=== PATIENT | female | born 1995 | race Caucasian/White ===

== ENCOUNTER 2021-07-23 11:36 | Outpatient (REF) | payer OTHER, SELFPAY ==
[2021-07-23 12:30] LABS: Influenza A PCR NEGATIVE (Negative); Influenza B PCR NEGATIVE (Negative); Resp Syncy Virus RNA Qual PCR NEGATIVE (Negative); SARS COV2 PCR INHOUSE POSITIVE (Negative)
== END 2021-07-23 11:37 | disposition home or self-care (01) ==
LOC: HO.LNP 11:36
PROVIDERS: Visit Provider Physician Assistant Medical
DX: Z20.822 Contact with and (suspected) exposure to COVID-19 (principal); J06.9 Acute upper respiratory infection, unspecified
CPT/HCPCS: 0241U

== ENCOUNTER 2021-12-08 09:06 | Outpatient (REF) | payer OTHER, SELFPAY ==
[2021-12-08 09:51] LABS: Hematocrit 41.8 % (37.0-47.0); Hemoglobin 12.6 g/dl (12.0-16.0); Mean Corpuscular HGB Conc 30.1 g/dl (31.0-35.0); Mean Corpuscular Hemoglobin 25.5 pg (27.0-33.0); Mean Corpuscular Volume 84.4 fL (80.0-98.0); Mean Platelet Volume 10.2 fL (9.4-12.3); Platelet Count 370 X10*3/uL (160-400); Red Blood Count 4.95 X10*6/uL (4.20-5.50); Red Cell Distribution Width 13.3 % (11.0-16.0); White Blood Count 8.1 X10*3/uL (4.8-10.8)
[2021-12-08 10:23] LABS: Alanine Aminotransferase 46 U/L (0-31); Alkaline Phosphatase 56 U/L (39-117); Anion Gap 12 (12-20); Aspartate Amino Transferase 40 U/L (5-31); Bilirubin Total 0.4 mg/dL (0.0-1.0); Blood Urea Nitrogen 10 mg/dL (9-16); Calcium 9.2 mg/dL (8.4-10.2); Carbon Dioxide 22 mmol/L (22-29); Chloride 111 mmol/L (96-108); Estimated Glomerular Filt Rate > 60; Glucose Fasting 93 mg/dL (60-99); Potassium 4.5 mmol/L (3.3-5.1); Sodium 140 mmol/L (135-145); Total Protein 7.1 g/dL (6.5-8.0)
[2021-12-08 10:27] LABS: Estimated Average Glucose 103 mg/dL; Hemoglobin A1c % 5.2 %
[2021-12-08 10:45] LABS: TSH reflex Free T4 4.54 uIU/mL (0.32-4.0)
[2021-12-08 11:19] LABS: Free T4 (Free Thyroxine) 0.91 ng/dL (0.71-1.85)
== END 2021-12-08 09:07 | disposition home or self-care (01) ==
LOC: HO.LAB 09:06
PROVIDERS: PCP Physician Assistant; Visit Provider Physician Assistant
DX: I10 Essential (primary) hypertension (principal); Z13.1 Encounter for screening for diabetes mellitus; Z13.29 Encounter for screening for other suspected endocrine disorder
CPT/HCPCS: 36415; 80053; 83036; 84439; 84443; 85027

== ENCOUNTER 2022-12-14 11:57 | Outpatient (REF) | payer OTHER, SELFPAY ==
[2022-12-14 15:12] LABS: Influenza A PCR NEGATIVE (Negative); Influenza B PCR NEGATIVE (Negative); Resp Syncy Virus RNA Qual PCR NEGATIVE (Negative); SARS COV2 PCR INHOUSE NEGATIVE (Negative)
== END 2022-12-14 11:58 | disposition home or self-care (01) ==
LOC: HO.LAB 11:57
PROVIDERS: Visit Provider Physician Assistant
DX: Z20.822 Contact with and (suspected) exposure to COVID-19 (principal); B34.9 Viral infection, unspecified
CPT/HCPCS: 0241U

== ENCOUNTER 2022-12-24 08:02 | Outpatient (REF) | payer OTHER, SELFPAY ==
[2022-12-24 09:08] LABS: Alanine Aminotransferase 10 U/L (0-31); Albumin Level 3.7 g/dL (3.5-5.0); Alkaline Phosphatase 40 U/L (39-117); Anion Gap 9 (12-20); Aspartate Amino Transferase 10 U/L (5-31); Bilirubin Total 0.5 mg/dL (0.0-1.0); Blood Urea Nitrogen 9 mg/dL (9-16); Calcium 8.9 mg/dL (8.4-10.2); Carbon Dioxide 24 mmol/L (22-29); Chloride 111 mmol/L (96-108); Estimated Glomerular Filt Rate > 60; Glucose Fasting 91 mg/dL (60-99); Potassium 4.4 mmol/L (3.3-5.1); Sodium 140 mmol/L (135-145); Total Protein 6.5 g/dL (6.5-8.0)
[2022-12-24 09:24] LABS: TSH reflex Free T4 2.88 uIU/mL (0.32-4.0)
== END 2022-12-24 08:03 | disposition home or self-care (01) ==
LOC: HO.LAB 08:02
PROVIDERS: PCP Physician Assistant; Visit Provider Physician Assistant
DX: R79.89 Other specified abnormal findings of blood chemistry (principal); Z13.1 Encounter for screening for diabetes mellitus
CPT/HCPCS: 36415; 80053; 84443

== ENCOUNTER 2023-08-23 08:38 | Outpatient (AMB) | payer OTHER, SELFPAY ==
[2023-08-23 10:01] VITALS: BP 100/62; PULSE 66; TEMP 36.3; O2SAT 97; BMI 31.9
--- NOTE | 2023-08-23 10:01 | AM.OFFWIN_ITS ---
Intake Vital Signs 08/23/23 10:01 Height 5 ft 4 in Weight 186 lb BMI 31.9 BP 100/62 Blood Pressure Location Rt brachial Position Sitting Pulse 66 Pulse Source Pulse Oximeter Temp 97.4 F Temp Source Temporal Artery Scan Pulse Oximetry (%) 97 Oxygen Delivery Method Room Air Intake Visit Reasons: EP body aches phlem cough ed [phone] Intake Note: pt is here for c/o body aches, cough, congestion Patient Tobacco Use Status: Never used Tobacco Allergies No Known Allergies [No Known Allergies*] Allergy (Verified 08/23/23 10:02) Do you need a note to return to daycare/school/sports/work: Yes HPI EP body aches phlem cough ed [phone] HPI Details Patient presents to walk-in clinic today for complaints of cough and fatigue for last 5 days. She had sore throat approximately 5 days ago but that has since resolved. Does report minimally productive cough of clear white sputum, otherwise reports persistent dry cough. Denies fevers, chest pain, vomiting, diarrhea. Known sick contact that tested positive for covid last week. She is requesting work note, she called out sick at the end of last week and again today. [facility] Medical History Tourettes disorder Family History Mother Hypothyroid (Updated 12/16/22 @ 13:38 by Case Michel PA-C) Housing: Apartment Alcohol intake: current Alcohol intake frequency: holidays/special occasions only Patient Tobacco Use Status: Never used Tobacco e-Cigarette/Vaping Use: Never Used service: No Current occupational status: employed Current occupation: [employer] Review of Systems Const All systems reviewed & are unremarkable except as noted in HPI and below Physical Exam Vital Signs: Last Vital Signs Temp 97.4 F 08/23/23 10:01 Pulse 66 08/23/23 10:01 BP 100/62 08/23/23 10:01 Pulse Ox 97 08/23/23 10:01 Oxygen Delivery Method Room Air 08/23/23 10:01 BMI result Body Mass Index 31.9 General: awake, alert, oriented. Answers questions appropriately. Fully engaged in examination. Skin: warm, dry, intact Neurological: Oriented to person, place, time and situation. Thought process intact. Psychiatric: Appropriate mood and affect. Good judgment and insight. HEENT Head: Yes normal to inspection Ears: hearing grossly normal bilaterally and TM's normal bilaterally Mouth: Normal oral and palatal mucosa present Throat: Yes posterior oropharynx normal and Yes uvula midline Resp Effort & Inspection: normal respiratory effort and Actively coughing Quality: dry Auscultation: clear to auscultation bilaterally Results Reviewed Results Reviewed: ENTERED: 08/23/[address]: PhysicianPerry Nicholas PA-C ORDERED: Binax Cov-19 Ag Test Result Flag Reference Site Binax Now Cov19 Negative Negative Assessment & Plan Assessment & Plan (1) Exposure to communicable disease: Code(s): Z20.9 - Contact with and (suspected) exposure to unspecified communicable disease (2) Upper respiratory tract infection: Code(s): J06.9 - Acute upper respiratory infection, unspecified Plan Rapid Covid test negative. Drink plenty of fluids, get plenty of rest, Tylenol/Motrin as needed Benzonatate 100mg po BID as needed for cough. No antibiotics warranted at this time. Work note provided per patient request. Follow up with pcp or return to clinic for any new or worsening symptoms. Orders: Orders BinaxNOW Covid-19 Ag Today Z20.9 - Contact with and (suspected) exposure to unspecified communicable disease Medications: New benzonatate 100 mg PO BID PRN 14 caps 0RF cough Coding Level of Care Code Est Pt Level 4 (21154) Diagnoses Exposure to communicable disease Z20.9 Upper respiratory tract infection J06.9
== END 2023-08-23 10:50 | disposition home or self-care (01) ==
PROVIDERS: PCP Physician Assistant; Visit Provider Registered Nurse Emergency
DX: J06.9 Acute upper respiratory infection, unspecified (principal); Z20.828 Contact with and (suspected) exposure to other viral communicable diseases
CPT/HCPCS: 99213

== ENCOUNTER 2023-08-23 10:51 | Outpatient (REF) | payer OTHER, SELFPAY ==
[2023-08-23 11:20] LABS: Binax Internal Control QC Valid; Binax Now Covid-19 Ag Negative (Negative); Binax Performed by: PAULP
== END 2023-08-23 10:52 | disposition home or self-care (01) ==
LOC: HO.HMGCLDS 10:51
PROVIDERS: PCP Physician Assistant; Visit Provider Registered Nurse Emergency
DX: Z11.52 Encounter for screening for COVID-19 (principal); Z20.9 Contact with and (suspected) exposure to unspecified communicable disease
CPT/HCPCS: 87811; C9803

== ENCOUNTER 2024-01-06 13:58 | Outpatient (AMB) | payer OTHER, SELFPAY ==
[2024-01-06 14:05] VITALS: BP 90/68; PULSE 80; O2SAT 99; BMI 33.7
--- NOTE | 2024-01-06 14:05 | MHC.PC.OV ---
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 ? PAtient pmhx of Asthma. enviromental allergies , tourettes, Obesity Concern--> reports she has been experiencing signs and symptoms more depression and anxiety. Has been writing poetry that seems dark in nature. She reports her family has noticed and advised her to seek counseling. She has not interested in mental health medication though would be interested in cognitive behavioral therapy. ? .. ? Touuretes (motor Tic disorder): Is seeing Dr. Jimenez/ Neuro, at this point she is managing her Tourettes without medications.. ? .. ? Asthma: SHe reports her asthma is well controlled only using her asthma inhaler on a p.r.n. basis., hasn't had any Asthma attacks. .. Obesity: Patient's BMI today 33.7. Has gained 10 lb since last office visit. Unclear if this is due to her thyroid. Has had history of elevated TSH.. ? .. ? Vaccine: Declines Flu, UTD with Tdap, Declines COVID vaccine, Need PCV ( considering) ? 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 ( [place]) Gets PAP theres- she would like to be evaluated for permanent sterilization and would need a referral to OBGYN [facility] Medical History Tourettes disorder Family History Mother Hypothyroid Social History (Updated 01/06/24 @ 14:19 by Case Michel PA-C) Housing: Apartment Alcohol intake: current Alcohol intake frequency: holidays/special occasions only Patient Tobacco Use Status: Never used Tobacco e-Cigarette/Vaping Use: Never Used service: No Current occupational status: unemployed Cognitive needs: No Hearing needs: No Vision needs: No Questionnaire PHQ-9 Over the last 2 weeks, how often have you been bothered by any of the following problems? 1. Little interest or pleasure in doing things: more than half the days 2. Feeling down, depressed, or hopeless: several days 3. Trouble falling or staying asleep, or sleeping too much: more than half the days 4. Feeling tired or having little energy: more than half the days 5. Poor appetite or overeating: more than half the days 6. Feeling bad about yourself - or that you are a failure or have let yourself or your family down: more than half the days 7. Trouble concentrating on things, such as reading the newspaper or watching television: several days 8. Moving or speaking so slowly that other people could have noticed. Or the opposite - being so fidgety or restless that you have been moving around a lot more than usual: not at all 9. Thoughts that you would be better off or of hurting yourself in some way: not at all Total score: 12 Depression Screening Interpretation: Positive Depression Screening Follow-up: Existing condition and Community Mental Health Worker F/U Depression Screening Done: Yes 08609 - PHQ-9 Billing: Yes Source: Developed by Drs. Sunil Bobby, Alba Mcclure, Oli Lassiter and colleagues, with an educational tiffany from [employer]. Thrive Questionnaire Date Thrive assessed: 01/06/24 I am a: Patient What is your living situation today?: I have a place to live, but I am worried about losing it in the future Within the past 12 months, did the food you bought not last and you didn't have the money to get more?: Never true Within the past 12 months, did you worry whether your food would run out before you got money to buy more?: Never true Do you have trouble paying for medicines?: No Do you have trouble getting transportation to medical appointments?: No Do you have trouble paying your heating and electricity bill?: Yes Do you have trouble taking care of your child, family member or friend?: No Do you have trouble with day-to-day activities such as bathing, preparing meals, shopping, managing finances, etc.?: No Are you currently unemployed and looking for a job?: Yes Are you interested in more education?: No Please select the resources that you would like help with: Housing/Detention, Utilities and Job search/training Currently or been in a relationship where the following occur: no concerns reported THRIVE Score: 2 AUDIT C Alcohol Use Questionnaire (AUDIT-C) 1. How often do you have a drink containing alcohol?: Never 3. How often do you have six or more drinks on one occasion?: Never Total Score: 0 VERO-7 AMB Questionnaire VERO-7 Date VERO - 7 assessed: 01/06/24 Feeling nervous, anxious, or on edge: 2 = More than half the days Not being able to stop or control worryin = More than half the days Worrying too much about different things: 2 = More than half the days Trouble relaxin = More than half the days Being so restless that it is hard to sit still: 0 = Not at all Becoming easily annoyed or irritable: 2 = More than half the days Feeling afraid as if something awful might happen: 2 = More than half the days Total VERO-7 score (0-4 normal; 5-9 mild; 10-14 moderate; 15-21 severe): 12 Source: Developed by Drs. Sunil Bobby, Alba Mcclure, Oli Lassiter and colleagues, with an educational tiffany from [employer]. VERO-7 Assessment Billing VERO-7 Assessment Tool: VERO-7 Assessment 47274 Review of Systems Const Denies body aches, Denies chills, Denies excessive sweating, Denies fatigue, Denies fever(s) and Denies headache(s) Eyes Denies blurry vision ENT Denies dysphagia, Denies vertigo, Denies dizziness, Denies headache(s), Denies hearing loss and Denies tinnitus Card Denies chest pain, Denies chest pain with activity, Denies syncope, Denies irregular heart rhythm and Denies dyspnea Resp Denies chest congestion, Denies cough, Denies hemoptysis, Denies dyspnea and Denies wheezing GI Denies abdominal pain, Denies melena, Denies hematochezia, Denies coffee ground emesis, Denies dysphagia, Denies diarrhea, Denies nausea and Denies vomiting Denies urinary frequency, Denies dysuria, Denies urinary hesitancy and Denies urinary urgency Musc Denies arthralgias, Denies limited range of motion, Denies muscle cramps and Denies muscle weakness Skin/Breast Denies rash and Denies skin ulcer Neuro Denies Abnormal speech present, Denies confusion, Denies vertigo, Denies dizziness, Denies syncope, Denies headache(s), Denies memory loss and Denies seizure-like activity Psych Denies anxiety, Denies confusion, Denies depression, Denies memory loss, Denies panic attacks and Denies paranoia Endo Denies excessive sweating, Denies fatigue, Denies flushing, Denies polydipsia and Denies polyuria Aller/Immun Denies wheezing Physical exam (Primary Care) Vital Signs: Last Vital Signs Pulse 80 01/06/24 14:05 BP 90/68 01/06/24 14:05 Pulse Ox 99 01/06/24 14:05 Oxygen Delivery Method Room Air 01/06/24 14:05 BMI result Body Mass Index 33.7 BMI Assessment/Plan discussion: High BMI High, discussed plan: lifestyle, weight reduction, dietary and physical activity Tobacco/Smoking Status: Tobacco use Status Tobacco use date assessed 01/06/24 01/06/24 14:14 Patient Tobacco Use Status Never used Tobacco 01/06/24 14:05 e-Cigarette/Vaping Use Never Used 01/06/24 14:05 PHQ-9: PHQ-9 Score PHQ-9: Total score 12 01/06/24 14:14 Depression Screening Interpretation: Positive Depression Screening Follow-up: Existing condition and Community Mental Health Worker F/U Thrive Assessment: Date of Thrive Assessment Date Thrive assessed 01/06/24 01/06/24 14:14 Currently or been in a relationship where the following occur: no concerns reported Const Other: Obese General: cooperative, comfortable, no acute distress, alert and awake; No confusion Orientation/consciousness: oriented to person, oriented to place, patient oriented x3 and No confusion HENMT Head: Yes normocephalic Ears: external ears normal and TM's normal bilaterally Face and sinus: No sinus tenderness Mouth: Normal oral and palatal mucosa present and tongue normal Teeth and gingiva: dentition normal and gingiva normal Throat: Yes posterior oropharynx normal, Yes tonsils normal and Yes uvula midline Eyes Conjunctivae: conjunctivae normal Sclerae: sclerae normal Pupils: Equal, round and reactive pupils present EOM: EOMs intact bilaterally Direct Ophthalmoscopy: No no photophobia Neck Neck: Yes no lymphadenopathy, No tender and Yes no JVD Thyroid: Thyroid normal Carotids: no bruits Chest Chest palpation & inspection: no tenderness Resp Effort & Inspection: normal respiratory effort, no audible wheezes, not labored and no stridor Auscultation: no crackles, no rales, no rhonchi and no wheezes Cardio Jugular venous distension: no JVD Rate: regular rate, not bradycardic and not tachycardic Rhythm: regular rhythm Bruits: no carotid bruits Peripheral pulses: Peripheral pulses 2+ throughout GI Inspection: Yes normal to inspection, No abdominal wall ecchymosis and No visible herniation Palpation (GI): Soft to palpation, nontender, no guarding, not rigid and No hepatosplenomegaly present Auscultation: normoactive bowel sounds General: Yes no CVA tenderness Back/Spine/Pelvis Back: no CVA tenderness and No back tenderness Cervical Spine: cervical ROM normal Thoracic/Lumbar Spine: thoracic and lumbar spine normal to inspection, straight leg raise negative bilaterally, No thoraco-lumbar ROM limited and No lumbar spinal tenderness Skin Lesions: no lesions Rashes: no rashes Wounds: no wounds Neuro General: oriented to person, oriented to place, patient oriented x3, CN's II-XI intact bilaterally and No confusion Cranial nerves: Yes Equal, round and reactive pupils present and Yes Normal accommodation reflex present Cognition (Neuro): normal cognition Speech: No Abnormal speech present Gait exam (Neuro): Normal gait present Motor exam (neuro): 5/5 motor strength present throughout Extrem Right upper extremity: full ROM; no cyanosis Left upper extremity: full ROM; no cyanosis Right lower extremity: no edema Left lower extremity: no edema Psych Appearance: grossly normal Mental Status: mental status grossly normal Affect: normal affect Attitude: cooperative Thought process: Normal thought process present Assessment and Plan Assessment & Plan (1) Annual physical exam: Code(s): Z00.00 - Encounter for general adult medical examination without abnormal findings (2) Elevated TSH: Code(s): R79.89 - Other specified abnormal findings of blood chemistry Plan: Has a history of elevated TSH. Has gained 10 lb since last office visit. Will recheck TSH and if elevated will consider starting low-dose levothyroxine. Of note patient does have somewhat of a hard time swallowing pills. 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 She is interested now in starting cognitive behavioral therapy. She has not interested in mental health medication at this time. (6) VERO (generalized anxiety disorder): Code(s): F41.1 - Generalized anxiety disorder Plan: Patient's VERO-7 score positive for anxiety which has been existing condition. Again interested in cognitive behavioral therapy. Orders: Orders TSH reflex Free T4 Today R79.89 - Other specified abnormal findings of blood chemistry Complete Blood Count no Diff Today J45.20 - Mild intermittent asthma, uncomplicated Comprehensive Dalton. Panel Fast Today Z13.1 - Encounter for screening for diabetes mellitus Referrals [facility] F[facility]DER [facility] Referral Z30.8 - Encounter for other contraceptive management Counseling Referral F33.1 - Major depressive disorder, recurrent, moderate Coding Level of Care Code Est Pt Prev Care 18-39y(95057) Diagnoses Annual physical exam Z00.00 Elevated TSH R79.89 Screening for diabetes mellitus (DM) Z13.1 Encounter for tubal ligation counseling Z30.8 MDD (major depressive disorder), recurrent episode, moderate F33.1 VERO (generalized anxiety disorder) F41.1 Additional Codes VERO-7 Assessment Billing - VERO-7 Assessment Tool: VERO-7 Assessment 23745 ([id number])
== END 2024-01-06 14:30 | disposition home or self-care (01) ==
PROVIDERS: PCP Physician Assistant; Visit Provider Physician Assistant
DX: Z00.00 Encounter for general adult medical examination without abnormal findings (principal); R94.6 Abnormal results of thyroid function studies; F33.1 Major depressive disorder, recurrent, moderate; J45.909 Unspecified asthma, uncomplicated; F41.1 Generalized anxiety disorder
CPT/HCPCS: 99395

== ENCOUNTER 2024-02-07 09:45 | Outpatient (REF) | payer OTHER, SELFPAY ==
[2024-02-07 10:28] LABS: Hematocrit 42.4 % (37.0-47.0); Hemoglobin 13.2 g/dl (12.0-16.0); Mean Corpuscular HGB Conc 31.1 g/dl (31.0-35.0); Mean Corpuscular Hemoglobin 25.2 pg (27.0-33.0); Mean Corpuscular Volume 81.1 fL (80.0-98.0); Mean Platelet Volume 10.1 fL (9.4-12.3); Platelet Count 394 X10*3/uL (160-400); Red Blood Count 5.23 X10*6/uL (4.20-5.50); White Blood Count 9.1 X10*3/uL (4.8-10.8)
[2024-02-07 11:03] LABS: Alanine Aminotransferase 29 U/L (0-31); Albumin Level 4.4 g/dL (3.5-5.0); Alkaline Phosphatase 63 U/L (39-117); Anion Gap 14 (12-20); Aspartate Amino Transferase 23 U/L (5-31); Bilirubin Total 0.7 mg/dL (0.0-1.0); Blood Urea Nitrogen 10 mg/dL (9-16); Calcium 10.1 mg/dL (8.4-10.2); Carbon Dioxide 25 mmol/L (22-29); Chloride 106 mmol/L (96-108); Estimated Glomerular Filt Rate > 60; Glucose Fasting 90 mg/dL (60-99); Potassium 4.1 mmol/L (3.3-5.1); Sodium 141 mmol/L (135-145); Total Protein 7.9 g/dL (6.5-8.0)
[2024-02-07 11:22] LABS: TSH reflex Free T4 2.42 uIU/mL (0.32-4.0)
== END 2024-02-07 09:46 | disposition home or self-care (01) ==
LOC: HO.LAB 09:45
PROVIDERS: PCP Physician Assistant; Visit Provider Physician Assistant
DX: R79.89 Other specified abnormal findings of blood chemistry (principal); J45.20 Mild intermittent asthma, uncomplicated; Z13.1 Encounter for screening for diabetes mellitus
CPT/HCPCS: 36415; 80053; 84443; 85027

== ENCOUNTER 2025-01-09 13:23 | Outpatient (AMB) | payer OTHER, SELFPAY ==
[2025-01-09 13:28] VITALS: BP 98/64; PULSE 80; TEMP 36.4; O2SAT 98
--- NOTE | 2025-01-09 13:28 | MHC.PC.OV ---
Vital Signs 01/09/25 13:28 Height 5 ft 4 in BP 98/64 Blood Pressure Location Rt brachial Position Sitting Pulse 80 Pulse Source Pulse Oximeter Temp 97.5 F Temp Source Temporal Artery Scan Pulse Oximetry (%) 98 Oxygen Delivery Method Room Air Intake Visit Reasons: PE Sap Technical Architect Required: No Accompanied by: Self / Same As Patient Allergies No Known Allergies [No Known Allergies*] Allergy (Verified 01/09/25 13:41) Medication List - Last Reconciled 01/09/25 by Case Michel PA-C No Known Home Meds Tobacco use date assessed: 01/09/25 Dental Screening Dental Screen Date: 01/09/25 Did you have a dental visit in the last 12 months?: Yes Did you have a dental problem in the last 6 months where you did not have access to dental care?: No Was dental information given to patient?: Patient has dentist HPI PE HPI Details Corie is a 29 y/o F here today for a PE visit. ? PAtient pmhx of Asthma. enviromental allergies , tourettes, Obesity Concern--> she reports her mother and sister both have hypothyroidism. She would like to be checked for thyroid issues. She has gained weight since last office visit. She also reports at times having a choking sensation and having trouble breathing she has contributing to a thyroid issue. ? .. ? Touuretes (motor Tic disorder): Was followed by Dr. Jimenez/ Neuro, at this point she is managing her Tourettes without medications.. ? .. ? Asthma: SHe reports her asthma is well controlled only using her asthma inhaler on a p.r.n. basis., hasn't had any Asthma attacks. .. Obesity: Seems to have gained weight since last office visit, unclear if this is due to her thyroid issue. Will check her TSH as she does have a family history of hypothyroidism.. ? .. ? Vaccine: Declines Flu, UTD with Tdap, Declines COVID vaccine, Need PCV ( considering) ? 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[place]) Gets PAP theres- she would like to be evaluated for permanent sterilization and would need a referral to OBGYN Laboratory Tests 12/08/21 12/24/22 02/07/24 09:35 08:15 10:03 TSH 4.54 H 2.88 2.42 PFSH Medical History Tourettes disorder Family History Mother Hypothyroid Social History Housing: Apartment Alcohol intake: current Alcohol intake frequency: holidays/special occasions only Patient Tobacco Use Status: Never used Tobacco e-Cigarette/Vaping Use: Never Used service: No Current occupational status: unemployed Cognitive needs: No Hearing needs: No Vision needs: No Questionnaire PHQ-9 Over the last 2 weeks, how often have you been bothered by any of the following problems? 1. Little interest or pleasure in doing things: not at all 2. Feeling down, depressed, or hopeless: not at all 3. Trouble falling or staying asleep, or sleeping too much: not at all 4. Feeling tired or having little energy: not at all 5. Poor appetite or overeating: not at all 6. Feeling bad about yourself - or that you are a failure or have let yourself or your family down: not at all 7. Trouble concentrating on things, such as reading the newspaper or watching television: not at all 8. Moving or speaking so slowly that other people could have noticed. Or the opposite - being so fidgety or restless that you have been moving around a lot more than usual: not at all 9. Thoughts that you would be better off or of hurting yourself in some way: not at all Total score: 0 Depression Screening Interpretation: Negative Depression Screening Done: Yes 15957 - PHQ-9 Billing: Yes Source: Developed by Drs. Sunil Bobby, Alba Mcclure, Oli Lassiter and colleagues, with an educational tiffany from [employer]. Thrive Questionnaire Date Thrive assessed: 01/09/25 I am a: Patient What is your living situation today?: I have a place to live, but I am worried about losing it in the future Within the past 12 months, did the food you bought not last and you didn't have the money to get more?: I choose not to answer this question Within the past 12 months, did you worry whether your food would run out before you got money to buy more?: I choose not to answer this question Do you have trouble paying for medicines?: No Do you have trouble getting transportation to medical appointments?: No Do you have trouble paying your heating and electricity bill?: Yes Do you have trouble taking care of your child, family member or friend?: No Do you have trouble with day-to-day activities such as bathing, preparing meals, shopping, managing finances, etc.?: No Are you currently unemployed and looking for a job?: Yes Are you interested in more education?: No Currently or been in a relationship where the following occur: No concerns reported THRIVE Score: 2 AUDIT C Alcohol Use Questionnaire (AUDIT-C) 1. How often do you have a drink containing alcohol?: Monthly or less 2. How many drinks containing alcohol do you have on a typical day when you are drinking?: 1 or 2 3. How often do you have six or more drinks on one occasion?: Never Total Score: 1 VERO-7 AMB Questionnaire VERO-7 Date VERO - 7 assessed: 01/09/25 Feeling nervous, anxious, or on edge: 1 = Several days Not being able to stop or control worryin = Several days Worrying too much about different things: 2 = More than half the days Trouble relaxin = Several days Being so restless that it is hard to sit still: 1 = Several days Becoming easily annoyed or irritable: 1 = Several days Feeling afraid as if something awful might happen: 1 = Several days Total VERO-7 score (0-4 normal; 5-9 mild; 10-14 moderate; 15-21 severe): 8 Source: Developed by Drs. Sunil Bobby, Alba Mcclure, Oli Lasister and colleagues, with an educational tiffany from [employer]. VERO-7 Assessment Billing VERO-7 Assessment Tool: VERO-7 Assessment 94676 ACT Questionnaire In the past 4 weeks, how much of the time did your asthma keep you from getting as much done at work, school or at home?: None of the time During the past 4 weeks, how often have you had shortness of breath?: Not at all During the past 4 weeks, how often did your asthma symptoms wake you up at night or earlier than usual in the morning?: Not at all During the past 4 weeks, how often have you had to use your rescue inhaler or nebulizer medication?: Not at all How would you rate your asthma control during the past 4 weeks?: Completely controlled ACT Interpretation: Negative Score: 25 Review of Systems Const Denies body aches, Denies chills, Denies excessive sweating, Denies fatigue, Denies fever(s) and Denies headache(s) Eyes Denies blurry vision ENT Denies dysphagia, Denies vertigo, Denies dizziness, Denies headache(s), Denies hearing loss and Denies tinnitus Card Denies chest pain, Denies chest pain with activity, Denies syncope, Denies irregular heart rhythm and Denies dyspnea Resp Denies chest congestion, Denies cough, Denies hemoptysis, Denies dyspnea and Denies wheezing GI Denies abdominal pain, Denies melena, Denies hematochezia, Denies coffee ground emesis, Denies dysphagia, Denies diarrhea, Denies nausea and Denies vomiting Denies urinary frequency, Denies dysuria, Denies urinary hesitancy and Denies urinary urgency Musc Denies arthralgias, Denies limited range of motion, Denies muscle cramps and Denies muscle weakness Skin/Breast Denies rash and Denies skin ulcer Neuro Denies Abnormal speech present, Denies confusion, Denies vertigo, Denies dizziness, Denies syncope, Denies headache(s), Denies memory loss and Denies seizure-like activity Psych Denies anxiety, Denies confusion, Denies depression, Denies memory loss, Denies panic attacks and Denies paranoia Endo Denies excessive sweating, Denies fatigue, Denies flushing, Denies polydipsia and Denies polyuria Aller/Immun Denies wheezing Physical exam (Primary Care) Vital Signs: Last Vital Signs Temp 97.5 F 01/09/25 13:28 Pulse 80 01/09/25 13:28 BP 98/64 01/09/25 13:28 Pulse Ox 98 01/09/25 13:28 Oxygen Delivery Method Room Air 01/09/25 13:28 Tobacco/Smoking Status: Tobacco use Status Tobacco use date assessed 01/09/25 01/09/25 13:39 Patient Tobacco Use Status Never used Tobacco 01/09/25 13:29 e-Cigarette/Vaping Use Never Used 01/09/25 13:29 PHQ-9: PHQ-9 Score PHQ-9: Total score 0 01/09/25 13:39 Depression Screening Interpretation: Negative Thrive Assessment: Date of Thrive Assessment Date Thrive assessed 01/09/25 01/09/25 13:39 Currently or been in a relationship where the following occur: No concerns reported Const General: cooperative, comfortable, no acute distress, alert and awake; No confusion Orientation/consciousness: oriented to person, oriented to place, patient oriented x3 and No confusion HENMT Head: Yes normocephalic Ears: external ears normal and TM's normal bilaterally Face and sinus: No sinus tenderness Mouth: Normal oral and palatal mucosa present and tongue normal Teeth and gingiva: dentition normal and gingiva normal Throat: Yes posterior oropharynx normal, Yes tonsils normal and Yes uvula midline Eyes Conjunctivae: conjunctivae normal Sclerae: sclerae normal Pupils: Equal, round and reactive pupils present EOM: EOMs intact bilaterally Direct Ophthalmoscopy: No no photophobia Neck Neck: Yes no lymphadenopathy, No tender and Yes no JVD Thyroid: Thyroid normal Carotids: no bruits Chest Chest palpation & inspection: no tenderness Resp Effort & Inspection: normal respiratory effort, no audible wheezes, not labored and no stridor Auscultation: no crackles, no rales, no rhonchi and no wheezes Cardio Jugular venous distension: no JVD Rate: regular rate, not bradycardic and not tachycardic Rhythm: regular rhythm Bruits: no carotid bruits Peripheral pulses: Peripheral pulses 2+ throughout GI Inspection: Yes normal to inspection, No abdominal wall ecchymosis and No visible herniation Palpation (GI): Soft to palpation, nontender, no guarding, not rigid and No hepatosplenomegaly present Auscultation: normoactive bowel sounds General: Yes no CVA tenderness Back/Spine/Pelvis Back: no CVA tenderness and No back tenderness Cervical Spine: cervical ROM normal Thoracic/Lumbar Spine: thoracic and lumbar spine normal to inspection, straight leg raise negative bilaterally, No thoraco-lumbar ROM limited and No lumbar spinal tenderness Skin Lesions: no lesions Rashes: no rashes Wounds: no wounds Neuro General: oriented to person, oriented to place, patient oriented x3, CN's II-XI intact bilaterally and No confusion Cranial nerves: Yes Equal, round and reactive pupils present and Yes Normal accommodation reflex present Cognition (Neuro): normal cognition Speech: No Abnormal speech present Gait exam (Neuro): Normal gait present Motor exam (neuro): 5/5 motor strength present throughout Extrem Right upper extremity: full ROM; no cyanosis Left upper extremity: full ROM; no cyanosis Right lower extremity: no edema Left lower extremity: no edema Psych Appearance: grossly normal Mental Status: mental status grossly normal Affect: normal affect Attitude: cooperative Thought process: Normal thought process present Coding Level of Care Code Est Pt Prev Care 18-39y(63326) Diagnoses Annual physical exam Z00.00 Family history of hypothyroidism Z83.49 MDD (major depressive disorder), recurrent episode, moderate F33.1 VERO (generalized anxiety disorder) F41.1 Mild intermittent asthma, unspecified whether complicated J45.20 Asthma severity: mild Asthma persistence: intermittent Asthma complication type: unspecified Additional Codes VERO-7 Assessment Billing - VERO-7 Assessment Tool: VERO-7 Assessment 11120 ([id number]) PHQ-9 - 57461 - PHQ-9 Billing: Yes ([id number]) Asthma Control Questionnaire - ACT Interpretation: Negative ([id number]) Assessment & Plan Assessment & Plan (1) Annual physical exam: Code(s): Z00.00 - Encounter for general adult medical examination without abnormal findings Category: Medical Plan: As per HPI (2) Family history of hypothyroidism: Code(s): Z83.49 - Family history of other endocrine, nutritional and metabolic diseases Category: Medical Plan: Patient would like her thyroid checked as she does have a family history of both her mom and sister having hypothyroidism. (3) MDD (major depressive disorder), recurrent episode, moderate: Code(s): F33.1 - Major depressive disorder, recurrent, moderate Category: Medical Plan: Patient's PHQ-9 score 0 Has a history of depression and anxiety. She is not interested in medication at this time. Was previously seeing a mental health therapist though has stopped mental health therapy.. (4) VERO (generalized anxiety disorder): Code(s): F41.1 - Generalized anxiety disorder Category: Medical Plan: Patient's VERO-7 score positive for anxiety which has been existing condition for her. Again he is not interested in any mental health therapy or mental health medications (5) Asthma: Code(s): J45.909 - Unspecified asthma, uncomplicated Category: Medical Qualifiers: Asthma severity: mild Asthma persistence: intermittent Asthma complication type: unspecified Qualified Code(s): J45.20 - Mild intermittent asthma, uncomplicated Plan: Patient reports her asthma has been well controlled with only. When use of an albuterol inhaler. She denies any nighttime awakenings with asthma symptoms or asthma exacerbations. Orders: Orders Comprehensive [place]. 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
--- OUTSIDE RECORDS SUMMARY | 2025-01-09 16:22 | XMS_ITS | Data Portability ---
Author Organization [place] - [facility], [facility] (Prof.) Address [address], [address] [place] [address] Assessment No assessment recorded. Plan of Treatment Reminders Order Date Submit Date Provider Last Modified By Organization Details Last Modified Time Details Appointments None record ed. Lab None record ed. Referral None record ed. Procedures None record ed. Surgeries None record ed. Imaging None record ed. Medication Orders None record ed. Patient TargetsNo targets recorded. Patient InstructionsNo instructions recorded. Reason for Referral None Reported. Medical Equipment None Reported. Vitals None Recorded Social History None recorded. Functional Status None recorded. Mental Status None recorded. Family History Nothing Reported. Medical History No medical history recorded. Gynecological HistoryNo gynecological history recorded. Obstetrics History GPAL:G 0 P 0 0 0 0 Past Encounters Encounter ID Performer Location Encounter Start Date Encounter Closed Date Diagnosis/Indication Diagnosis SNOMED-CT Code Diagnosis ICD10 Code Diagnosis Note [id number] [address] 10/21/2017 10:49:44 10/21/2017 10:51:36 Health Concerns Section Related Observation LastModified by Organization Detai ls LastModified Time None Recorded Concern Status LastModified by Organization Details LastModified Time None Recorded Advance Directives Directive None Recorded Payers Encounter Date Sequence Insurance Name Policy Number Policy Wagner Covered Member ID Wagner Member ID Guarantor Name 10/21/2017 1 [place] [facility] Corie Swain [id number] Corie Swain OBNuzhat Episode No OBEpisode recorded.
--- OUTSIDE RECORDS SUMMARY | 2025-01-09 16:22 | XMS_ITS | Clinical Summary ---
Author Organization [facility] ity Address [address] [place] [address] Care Team Providers Care Health Aide Name Role Phone Unavailable Primary Care Provider Unavailabl e Surgical History Surgery Date Site/Laterality Comments OTHER SURGICAL HISTORY PROCEDURE: DENIES PREVIOUS SURGERY Medical History Medical History Date Comments Asthma DX:Asthma Family History Medical History Relation Name Comments Breast cancer Neg Hx Colon cancer Neg Hx Ovarian cancer Neg Hx Prostate cancer Neg Hx Social History Tobacco Use Types Packs/Day Years Used Date Smoking Tobacco: Never Smokeless Tobacco: Never Alcohol Use Standard Drinks/Week Comments No 0 (1 standard drink = 0.6 oz pur e alcohol) Comments Unknown Sex and Gender Information Value Date Recorded Sex Assigned at Not on file Legal Sex Female 9:51 AM EST Gender Identity Not on file Sexual Orientation Not on file Obstetrics History Plan of Treatment Health Maintenance Due Date Last Done Comments Hepatitis B Vaccines (1 of 3 - 19+ 3-dose series) 2013 Cervical Cancer Screening: P ap Smear 2015 COVID-19 Vaccine (2023-2 5 season) 2024 Influenza Vaccine (Season Ended) 2025 DTaP,Tdap,and Td Vaccines (2 - Td or Tdap) 02/09/2028 02/08/2018 HIB Vaccines Aged Out No longer eligi ble based on patient's age to complete this topic HPV Vaccines Aged Out No longer eligi ble based on patient's age to complete this topic Hepatitis A Vaccines Aged Out No long er eligible based on patient's age to complete this topic IPV Vaccines Aged Out No longer eligi ble based on patient's age to complete this topic MMR Vaccines Aged Out No longer eligi ble based on patient's age to complete this topic Meningococcal ACWY Vaccine Aged Out N o longer eligible based on patient's age to complete this topic Meningococcal B Vaccine Aged Out No l onger eligible based on patient's age to complete this topic Pneumococcal Vaccine: Pediat rics (0 to 5 Years) and At-Risk Patients (6 to 64 Years) Aged Out No longer eligi ble based on patient's age to complete this topic RSV Immunization Patients Un malinda 20 months Aged Out No longer eligible b ased on patient's age to complete this topic Varicella Vaccines Aged Out No longer eligible based on patient's age to complete this topic
== END 2025-01-09 13:53 | disposition home or self-care (01) ==
LOC: HO.HMCH 13:23
PROVIDERS: PCP Physician Assistant; Visit Provider Physician Assistant
DX: Z00.00 Encounter for general adult medical examination without abnormal findings (principal); Z83.49 Family history of other endocrine, nutritional and metabolic diseases; F33.1 Major depressive disorder, recurrent, moderate; F41.1 Generalized anxiety disorder; J45.20 Mild intermittent asthma, uncomplicated

== ENCOUNTER → 2025-01-09 13:23 | Outpatient (BNVA) | payer OTHER, SELFPAY | PROVIDERS: PCP Physician Assistant; Visit Provider Physician Assistant | DX: Z00.00 Encounter for general adult medical examination without abnormal findings (principal); E03.9 Hypothyroidism, unspecified; E66.9 Obesity, unspecified; F33.1 Major depressive disorder, recurrent, moderate; F41.1 Generalized anxiety disorder; J45.20 Mild intermittent asthma, uncomplicated; Z83.49 Family history of other endocrine, nutritional and metabolic diseases; Z79.899 Other long term (current) drug therapy | CPT/HCPCS: 96127; 96160; 99395 ==

== ENCOUNTER 2025-01-30 09:04 | Outpatient (REF) | payer OTHER, SELFPAY ==
[2025-01-30 09:40] LABS: Hematocrit 41.2 % (37.0-47.0); Hemoglobin 13.1 g/dl (12.0-16.0); Mean Corpuscular HGB Conc 31.8 g/dl (31.0-35.0); Mean Corpuscular Hemoglobin 25.7 pg (27.0-33.0); Mean Corpuscular Volume 80.9 fL (80.0-98.0); Platelet Count 379 X10*3/uL (160-400); Red Blood Count 5.09 X10*6/uL (4.20-5.50); Red Cell Distribution Width 13.2 % (11.0-16.0); White Blood Count 7.7 X10*3/uL (4.8-10.8)
--- OUTSIDE RECORDS SUMMARY | 2025-01-30 09:48 | XMS_ITS | Data Portability ---
Author Organization [facility], [facility] (Prof.) Address [address], [address] [place] [address] Assessment No assessment recorded. Plan of Treatment [...] SNOMED-CT Code Diagnosis ICD10 Code Diagnosis Note [id number] Kiko Benito MD [address] [address] 10/21/2017 10:49:44 10/21/2017 10:51:36 Health Concerns Section Related Observation LastModified by Organization Detai ls LastModified Time None Recorded Concern Status LastModified by Organization Details LastModified Time None Recorded Advance Directives Directive None Recorded Payers Encounter Date Sequence Insurance Name Policy Number Policy Wagner Covered Member ID Wagner Member ID Guarantor Name 10/21/2017 1 [place]: [facility] Corie Swain [id number] Corie Swain OBNuzhat Episode No OBEpisode recorded.
[2025-01-30 10:12] LABS: Alanine Aminotransferase 36 U/L (0-31); Albumin Level 4.2 g/dL (3.5-5.0); Alkaline Phosphatase 66 U/L (39-117); Anion Gap 11 (12-20); Aspartate Amino Transferase 35 U/L (5-31); Bilirubin Total 0.5 mg/dL (0.0-1.0); Blood Urea Nitrogen 10 mg/dL (9-16); Calcium 9.3 mg/dL (8.4-10.2); Carbon Dioxide 26 mmol/L (22-29); Chloride 108 mmol/L (96-108); Estimated Glomerular Filt Rate > 60; Glucose Fasting 90 mg/dL (60-99); Potassium 4.2 mmol/L (3.3-5.1); Sodium 141 mmol/L (135-145); Total Protein 7.3 g/dL (6.5-8.0)
== END 2025-01-30 09:05 | disposition home or self-care (01) ==
LOC: HO.LAB 09:04
PROVIDERS: PCP Physician Assistant; Visit Provider Physician Assistant
DX: Z13.1 Encounter for screening for diabetes mellitus (principal)
CPT/HCPCS: 36415; 80053; 85027

== ENCOUNTER 2025-03-06 12:51 | Outpatient (REF) | payer OTHER, SELFPAY ==
[2025-03-06 14:29] LABS: TSH reflex Free T4 2.18 uIU/mL (0.32-4.0)
--- OUTSIDE RECORDS SUMMARY | 2025-03-06 15:02 | XMS_ITS | Clinical Summary ---
Author Organization [facility] ity Address [address] [place] [address] Care Team Providers Care Chain Carrier Name Role Phone Unavailable Primary Care Provider [...]
== END 2025-03-06 12:52 | disposition home or self-care (01) ==
LOC: HO.LAB 12:51
PROVIDERS: PCP Physician Assistant; Visit Provider Physician Assistant
DX: Z83.49 Family history of other endocrine, nutritional and metabolic diseases (principal)
CPT/HCPCS: 36415; 84443

== ENCOUNTER 2025-04-12 09:55 | Outpatient (REF) | payer OTHER, SELFPAY ==
--- NOTE | ~2025-04-12 | US_ITS ---
CLINICAL HISTORY: R74.8 - Abnormal levels of other serum enzymes --- Additional Notes or Special Instructions: Ultrasound evaluate fatty liver disease US abdomen complete Comparison: None provided Findings: The visualized pancreas is within normal limits. The aorta and inferior vena cava are normal caliber. The liver is normal in size and measures 15.8 cm. Increased parenchymal echogenicity likely hepatic steatosis. There is no intrahepatic bile duct dilatation. The common duct is 3 mm in diameter. The gallbladder is normal. There is no sonographic Gonzalez sign. The right kidney is 10.4 cm in length. 0.7 cm cortical cyst in midpole of right kidney. The left kidney is 10.1 cm in length. The spleen is normal, measures 11.1 cm. No ascites. IMPRESSION: 1. Hepatic steatosis. 2. Subcentimeter right renal cortical simple cyst. 3. Otherwise unremarkable study. This document has been electronically signed by: Oneida Tinajero MD on 04/12/2025 23:57:20
--- OUTSIDE RECORDS SUMMARY | 2025-04-12 10:21 | XMS_ITS | Clinical Summary ---
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
--- OUTSIDE RECORDS SUMMARY | 2025-04-12 10:21 | XMS_ITS | Data Portability ---
Author Organization [facility], [facility] (ProfDouglas) Address [address], [address] [place] [address] Assessment No assessment recorded. Plan of Treatment [...] SNOMED-CT Code Diagnosis ICD10 Code Diagnosis Note [id number] Kiko Benito MD [address] [address] 10/21/2017 10:49:44 10/21/2017 10:51:36 Health Concerns Section Related Observation LastModified by Organization Detai ls LastModified Time None Recorded Concern Status LastModified by Organization Details LastModified Time None Recorded Advance Directives Directive None Recorded Payers Insurance Date Sequence Insurance Name Policy Number Policy Wagner Covered Member ID Wagner Member ID Guarantor Name 12/17/2017 1 [place]: [facility] Corie Swain [id number] Corie Swain OBNuzhat Episode No OBEpisode recorded.
== END 2025-04-12 09:56 | disposition home or self-care (01) ==
LOC: HO.US 09:55
PROVIDERS: PCP Physician Assistant; Visit Provider Physician Assistant
DX: R74.8 Abnormal levels of other serum enzymes (principal)
CPT/HCPCS: 76700

== ENCOUNTER → 2025-04-12 09:58 | Outpatient (BNV) | payer OTHER, SELFPAY | PROVIDERS: PCP Physician Assistant; Visit Provider Specialist | DX: K76.0 Fatty (change of) liver, not elsewhere classified (principal) | CPT/HCPCS: 76700 ==

== ENCOUNTER 2025-06-13 12:05 | Outpatient (AMB) | payer OTHER, SELFPAY ==
[2025-06-13 12:09] VITALS: BP 102/70; PULSE 92; TEMP 36.9; O2SAT 98; BMI 34.0
--- NOTE | 2025-06-13 12:09 | AM.OFFWIN_ITS ---
Intake Vital Signs 06/13/25 12:09 Height 5 ft 4 in Weight 198 lb BMI 34.0 BP 102/70 Blood Pressure Location Lt brachial Position Sitting Pulse 92 Pulse Source Pulse Oximeter Temp 98.4 F Temp Source Oral Pulse Oximetry (%) 98 Oxygen Delivery Method Room Air Intake Visit Reasons: EP sore throat, congestion Intake Note: pt presents with sinus congestion and sore throat for a couple days Patient Tobacco Use Status: Never used Tobacco Allergies No Known Allergies (No Known Allergies*) Allergy (Verified 06/13/25 12:10) Do you need a note to return to daycare/school/sports/work: Yes HPI HPI Comments History of Present Illness Details History - The patient is a 30-year-old female pr esenting with cough and congestion. - Reports congestion and occasional ear pain, initially thought to be allergies. - Has been having a dry cough, post nasa l drip and a runny nose. - She has had a sore throat. - History of asthma with a chronic cough , and a recent episode of nausea and vomiting. - Her daughter had a streptococcal phary ngitis three weeks ago, now resolved. - She denies fever, chills, CP, SOB, abd pain, n/v/d, or travel. - She is not a smoker. Physical Exam General: Cooperative, healthy appearing, comfortable and no acute distress Orientation/consciousness: Patient oriented x3 Limitations: No limitations Head: Normal to inspection Ears: Hearing grossly normal bilaterally, external ears normal and TM's normal bilaterally Nose: Normal external nose present, normal nares present, and no nasal discharge present. Face and sinus: Sinuses nontender to palpation. Mouth: Normal oral and palatal mucosa present and moist mucous membranes noted. Throat: Tonsils normal. Uvula is midline. Posterior oropharynx with no erythema and no exudates. Eyes: Appearance normal, both eyes and all related structures Neck: Normal visual inspection, full ROM. No lymphadenopathy noted. Respiratory: Clear to auscultation bilaterally. Normal respiratory effort, able to speak in complete sentences. No respiratory distress, not tachypneic, no tripod positioning and no use of accessory muscles. Cardiovascular: Regular rate and rhythm. Normal S1 and S2 Skin: No rashes or lesions noted Patient was informed and verbally consented to the use of an ambient scribe for clinic note documentation during this visit [facility] Medical History Tourettes disorder Family History Mother Hypothyroid Social History Housing: Apartment Alcohol intake: current Alcohol intake frequency: holidays/special occasions only Patient Tobacco Use Status: Never used Tobacco e-Cigarette/Vaping Use: Never Used service: No Current occupational status: unemployed Cognitive needs: No Hearing needs: No Vision needs: No Review of Systems Const All systems reviewed & are unremarkable except as noted in HPI and below Physical Exam Vital Signs: Last Vital Signs Temp 98.4 F 06/13/25 12:09 Pulse 92 06/13/25 12:09 BP 102/70 06/13/25 12:09 Pulse Ox 98 06/13/25 12:09 Oxygen Delivery Method Room Air 06/13/25 12:09 BMI result Body Mass Index 34.0 Assessment & Plan Assessment & Plan (1) URI with cough and congestion: Code(s): J06.9 - Acute upper respiratory infection, unspecified Plan Most likely URI vs covid vs flu vs rsv vs viral illness rapid strep is negative plan - Conducted a respiratory panel to identify the causative agent and prescribed symptomatic treatment. - tylenol or motrin as needed - Advised to monitor symptoms and use inhalers as needed. - Continue using [id number] allergy medications as needed. - will call with the results - follow up with PCP Orders: Orders Resp Pathogen Panel - [facility] [place] Today J06.9 - Acute upper respiratory infection, unspecified Medications: New fluticasone propionate 50 mcg/actuation administer into each nostril 1 spray intranasal Q12H 16 grams 0RF cetirizine-pseudoephedrine 5-120 mg ER 1 tab PO BID 14 tabs 0RF 7 days benzonatate 100 mg PO bid-tid PRN 21 caps 0RF Cough 7 days Coding Level of Care Code Est Pt Level 3 (16246) Diagnoses URI with cough and congestion J06.9
== END 2025-06-13 12:35 | disposition home or self-care (01) ==
PROVIDERS: PCP Physician Assistant; Visit Provider Physician Assistant Medical
DX: Z13.9 Encounter for screening, unspecified (principal); J06.9 Acute upper respiratory infection, unspecified

== ENCOUNTER 2025-06-13 12:05 | Outpatient (REF) | payer OTHER, SELFPAY ==
[2025-06-14 12:42] LABS: Chlamydia pneumoniae PCR Not Detected (Not Detect.); Coronavirus 229E PCR Not Detected (Not Detect.); Coronavirus HKU1 PCR Not Detected (Not Detect.); Coronavirus NL63 PCR Not Detected (Not Detect.); Coronavirus OC43 PCR Not Detected (Not Detect.); RSV PCR Not Detected (Not Detect.); Rhino/Enterovirus PCR Not Detected (Not Detect.)
[2025-06-14 12:52] LABS: Influenza A H1 PCR Not Detected (Not Detect.); Influenza A H1-2009 PCR Not Detected (Not Detect.); Influenza A H3 PCR Not Detected (Not Detect.); SARS-CoV-2 PCR Not Detected (Not Detect.)
== END 2025-06-13 12:06 | disposition home or self-care (01) ==
LOC: HO.LNP 12:05
PROVIDERS: PCP Physician Assistant; Visit Provider Physician Assistant Medical
DX: J06.9 Acute upper respiratory infection, unspecified (principal)
CPT/HCPCS: 87633; 87880; 99212

== ENCOUNTER 2025-07-03 09:21 | Outpatient (REF) | payer OTHER, SELFPAY ==
[2025-07-04 10:49] LABS: Bacterial Vaginosis PCR POSITIVE (Negative); Candida Group PCR NOT DETECTED (Not Detect); Candida glab krusei PCR NOT DETECTED (Not Detect); Trichomonas vaginalis PCR NOT DETECTED (Not Detect)
[2025-07-04 11:20] LABS: CT PCR NOT DETECTED (Not Detect.); NG PCR NOT DETECTED (Not Detect.)
== END 2025-07-03 09:22 | disposition home or self-care (01) ==
LOC: HO.LAB 09:21
PROVIDERS: PCP Physician Assistant; Visit Provider Advanced Practice Midwife
DX: Z12.4 Encounter for screening for malignant neoplasm of cervix (principal); Z30.09 Encounter for other general counseling and advice on contraception; Z20.2 Contact with and (suspected) exposure to infections with a predominantly sexual mode of transmission; F95.2 Tourette's disorder; E66.811 Obesity, class 1; Z68.34 Body mass index [BMI] 34.0-34.9, adult; Z79.899 Other long term (current) drug therapy
CPT/HCPCS: 81515; 87491; 87591; 99385

== ENCOUNTER 2025-07-03 09:21 | Outpatient (AMB) | payer OTHER, SELFPAY ==
--- NOTE | 2025-07-03 09:31 | A.OFFVIS_ITS ---
Vital Signs 07/03/25 09:46 Height 5 ft 4 in Weight 198 lb BMI 34.0 BP 112/70 Intake Visit Reasons: [employer] annual exam Intake Note: Per patient last pap smear 2 yearsago at [facility]. Normal hx. 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 She used to get her Pap smears and everything at [facility] she was on the control patch for a while but she stopped it because it was causing a rash on her skin though she used it for quite a while. She last had intercourse around 4 months ago she does not recall using anything for control she would like to get her tubes tied and she has wanted to do that ever since the of her 7-year-old. She says she gets regular periods and her period just ended. When enquiring about the option of using condoms if she became sexually active again she said she would.. She later remembered that she did have a history of some type of abnormal Pap smears and they needed to be repeated frequently for a while but remembers being told everything was okay at the last 1. Also she remembered that she had been told she had fatty liver disease and needed to lose weight she has follow-up with her PCC in December. 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 Vital Signs: Last Vital Signs BP 112/70 07/03/25 09:46 BMI result Body Mass Index 34.0 Const General: healthy appearing, comfortable, no acute distress, well developed and alert Nutritional Appearance: average body habitus and obese Orientation/consciousness: patient oriented x3 Limitations: no limitations HEENT Head: Yes normocephalic Neck Neck: Yes normal visual inspection Chest Chest palpation & inspection: normal inspection of the chest Breast/axilla inspection: normal inspection of the breasts and normal inspection of the axillae Breast/axilla palpation: normal palpation of the breasts and normal palpation of the axillae Resp Effort & Inspection: normal respiratory effort GI Inspection: Yes normal to inspection, No Abdominal wall edema and No distended Palpation (GI): Soft to palpation and nontender Other: External exam within normal limits vagina pink and moist cervix pink smooth healthy appearing it was very friable with the Pap smear. Cervix is long close thick mobile midposition nontender uterus midposition nontender nonenlarged adnexa non tender nonenlarged good tone with Kegel. General: Yes bladder normal to palpation External Female Exam: normal external appearance and normal appearance of the urethra Speculum Exam - Vagina: normal appearance of the vagina, normal palpation and normal vaginal discharge Speculum Exam - Cervix: normal appearance of the cervix, normal palpation and nontender Bimanual exam- vagina & uterus: normal bimanual exam, normal palpation, uterine size normal, bladder normal to palpation, consistency normal, normal palpation, uterine mobility normal, uterine shape normal, No Cervical tenderness present, non-tender and no cervical motion tenderness Bimanual Exam- Adnexa, other: normal adnexae, no masses, normal and No adnexal tenderness Neuro General: patient oriented x3 Assessment & Plan Assessment & Plan (1) Screening for cervical cancer: Code(s): Z12.4 - Encounter for screening for malignant neoplasm of cervix Category: Medical (2) Obese: Code(s): E66.9 - Obesity, unspecified Category: Medical Qualifiers: Obesity type: due to excess calories Obesity classification: adult class 1 (BMI 30 - 34.9) Serious obesity comorbidity presence: without serious comorbidity Body mass index: BMI 34.0-34.9 Qualified Code(s): E66.09 - Other obesity due to excess calories; Z68.34 - Body mass index [BMI] 34.0-34.9, adult (3) Tourettes disorder: Code(s): F95.2 - Tourette's disorder Category: Medical (4) control counseling: Code(s): Z30.09 - Encounter for other general counseling and advice on contraception Category: Medical (5) Screening for malignant neoplasm of cervix: Code(s): Z12.4 - Encounter for screening for malignant neoplasm of cervix Category: Medical (6) Encounter for screening examination for sexually transmitted disease: Code(s): Z11.3 - Encounter for screening for infections with a predominantly sexual mode of transmission Category: Medical Plan -----Discussed in this visit the following: healthy balanced diet, regular and consistent exercise, getting recommended health screens, doing the best she can for her particular health concerns, kegel exercises, pap smear screening and followup recommendations, mammography screening and SBE, normal changes in cycles in her life stage--- .This note is constructed using voice recognition software. While every effort has been made to ensure accuracy, rib trim separator errors may have been included. Discussed options for control until she is able to meet with waterproof bag cutting machine operator and discuss having a tubal ligation she said she would use condoms. She also remembered in the visit that she had been told she had fatty liver disease she says it is hard because she is a picky eater she does not like the texture vegetables though she grinds them up and puts them and a sauce to put over things in the cooking. Pap smear was done testing for gonorrhea chlamydia trichomoniasis BV and yeast done with the Pap her cervix was pink and clear but very friable with the Pap She declined any blood work for STIs. Discussed the benefits of increasing dietary options for both her and her daughter and the challenges of healthy habits and losing weight. Patient will be seeing waterproof bag cutting machine operator for tubal consultation and we will see her in 1 year. Coding Level of Care Code New Pt Prev Care 18-39yr(00004 Diagnoses Screening for cervical cancer Z12.4 Class 1 obesity due to excess calories without serious comorbidity with body mass index (BMI) of 34.0 to 34.9 in adult E66.09; Z68.34 Obesity type: due to excess calories Obesity classification: adult class 1 (BMI 30 - 34.9) Serious obesity comorbidity presence: without serious comorbidity Body mass index: BMI 34.0-34.9 Tourettes disorder F95.2 control counseling Z30.09 Screening for malignant neoplasm of cervix Z12.4 Encounter for screening examination for sexually transmitted disease Z11.3
[2025-07-03 09:46] VITALS: BP 112/70; BMI 34.0
--- OUTSIDE RECORDS SUMMARY | 2025-07-03 10:25 | XMS_ITS | Clinical Summary ---
Author Organization [facility] ity Address [address] [place] [address] Care Team Providers Care Textile Machinery Sales Representative Name Role Phone Unavailable Primary Care Provider [...] Cervical Cancer Screening: P ap Smear 2015 HPV Vaccines (1 - 3-dose SCD M series) 2021 Depression Screening 09/27/2024 COVID-19 Vaccine ( - 2023-2 5 season) 2025 Influenza Vaccine (#1) 2025 DTaP,Tdap,and Td Vaccines (2 - Td or Tdap) 02/09/2028 02/08/2018 RSV Immunization Adult Patie nts (1 - 1-dose 75+ series) 2069 HIB Vaccines Aged Out No longer eligi [...]
== END 2025-07-03 14:27 | disposition home or self-care (01) ==
LOC: HO.HWSM 09:21
PROVIDERS: PCP Physician Assistant; Visit Provider Advanced Practice Midwife
DX: Z01.419 Encounter for gynecological examination (general) (routine) without abnormal findings (principal); E66.09 Other obesity due to excess calories; Z68.34 Body mass index [BMI] 34.0-34.9, adult; F95.2 Tourette's disorder; Z30.09 Encounter for other general counseling and advice on contraception; Z11.3 Encounter for screening for infections with a predominantly sexual mode of transmission
CPT/HCPCS: 99385; 99459

== ENCOUNTER 2025-07-03 11:29 | Outpatient (REF) | payer OTHER, SELFPAY | END 2025-07-03 11:30 | disposition home or self-care (01) | LOC: HO.LNP 11:29 | PROVIDERS: Visit Provider Advanced Practice Midwife | DX: Z01.419 Encounter for gynecological examination (general) (routine) without abnormal findings (principal); N89.8 Other specified noninflammatory disorders of vagina | CPT/HCPCS: 87626; 88175 ==

== ENCOUNTER 2025-07-22 20:14 | Emergency (ER) | payer OTHER, SELFPAY ==
[2025-07-22 20:26] VITALS: BP 104/61; PULSE 116; RESP 18; TEMP 36.9; O2SAT 98; BMI 37.0
--- NOTE | 2025-07-22 20:28 | ED_ITS ---
HPI - Abdominal Pain General Chief Complaint: Nausea/Vomiting/Diarrhea Stated Complaint: vomiting/diarrhea/headache/feels weak Time Seen by Provider: 07/22/25 22:34 History of Present Illness ED Provider: Karlie QUINTANILLA narrative: The patient is a 30-year-old female who says that she has had a a number of intermittent symptoms of nausea over the last couple of weeks but was significantly worse today with nausea, vomiting, and diarrhea. She also had some abdominal cramping. She does not think she has had fever. She denies marijuana use. She denies alcohol use. 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 No chest pain or shortness of breath. The patient's mother brought her to the emergency room. Related Data Home Medications ?Medication ?Instructions ?Recorded ?Confirmed loratadine 10 mg tablet (Claritin) 10 mg PO DAILY PRN 06/13/25 07/03/25 Previous Rx's ?Medication ?Instructions ?Recorded metronidazole 0.75 % (37.5 mg/5 1 appful vaginal DAILY 5 days #70 07/06/25 gram) vaginal gel (Vandazole) grams Allergies Allergy/AdvReac Type Severity Reaction Status Date / Time No Known Allergies (No Known Allergy Verified 07/22/25 20:29 Allergies*) Review of Systems Review of Systems Yes all other systems are reviewed and are negative [facility] Past Medical History Medical History (Updated 07/23/25 @ 00:25 by Salvador Ziegler MD) Asthma Tourettes disorder Family History Family History Mother Hypothyroid Social History Social History (Updated 07/03/25 @ 09:34 by Krys Burton MA) Housing: Apartment Alcohol intake: current Alcohol intake frequency: holidays/special occasions only Patient Tobacco Use Status: Never used Tobacco Smoked in Last 30 Days: No e-Cigarette/Vaping Use: Never Used Use of substances other than those prescribed or required for medical reasons: No Advance Directives: No Advance Directives Information Provided: No Do you have a plan to hurt others: No Plan Patient : No service: No Current occupational status: employed and unemployed 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 She looks mildly unwell but not obviously acutely ill. Orientation/consciousness: patient oriented x3 HENMT Other: The face is symmetrical. ?Mucous membranes moist. Eyes Other: Pupils are round equal, conjunctivae are clear, extraocular movements intact Neck Neck: Yes normal visual inspection and Yes full ROM Resp Effort & Inspection: normal respiratory effort Auscultation: clear to auscultation bilaterally Cardio Rate: regular rate Rhythm: regular rhythm Heart sounds: S1 normal heart sound present and S2 normal heart sound present GI Other: The patient has a mildly protuberant abdomen. She did not seem to any focal tenderness. The abdomen seemed soft. Skin Other: The skin is dry and unremarkable Neuro General: patient oriented x3, tone normal, moves all extremities, no focal motor deficits and CN's II-XI intact bilaterally Course Course Course Narrative: Minna Emery [employer] RO[employer] 07/22 2030 This is a rapid medical exam. Deferred additional HPI, ROS, PE to primary provider. 30-year-old female with a history of asthma, fatty liver disease presents the ER with complaints of vomiting, diarrhea, headache, weakness acute on chronic since yesterday. Will obtain labs, UA, urine and viral testing VSS Medical Decision Making Medical Decision Making MDM Narrative: The patient is a 30-year-old female who presents with nausea, vomiting, and diarrhea. I felt her abdomen seemed to be benign. She was treated with IV fluids, ketorolac, and droperidol. She felt considerably better and was eager to go home. She will be given a work note. I re-examined her. I still do not think she has any significant abdominal tenderness. She will be discharged to return if she feels significantly worse. Lab Data 07/22/25 20:41 07/22/25 20:41 Labs: Lab Results 07/22/25 07/22/25 Range/Units 20:41 20:57 WBC 10.3 (4.8-10.8) X10*3/uL RBC 5.55 H (4.20-5.50) X10*6/uL Hgb 13.8 (12.0-16.0) g/dl Hct 43.3 (37.0-47.0) % MCV 78.0 L (80.0-98.0) fL MCH 24.9 L (27.0-33.0) pg MCHC 31.9 (31.0-35.0) g/dl RDW 13.5 (11.0-16.0) % Plt Count 402 H (160-400) X10*3/uL MPV 9.3 L (9.4-12.3) fL Immature Gran % (Auto) 0.4 (0.0-0.4) % Neut % (Auto) 83.6 H (45-73) % Lymph % (Auto) 8.9 L (20-40) % [place] % (Auto) 6.3 (2-11) % Eos % (Auto) 0.5 (0-4) % Baso % (Auto) 0.3 (0-2) % Lymph # (Auto) 0.9 L (1.2-4.9) X10*3/uL [place] # (Auto) 0.7 (0.1-1.2) X10*3/uL Eos # (Auto) 0.1 (0.0-0.4) X10*3/uL Baso # (Auto) 0.0 (0.0-0.2) X10*3/uL Abs Immat Gran (auto) 0.04 H (0.00-0.03) X10*3/uL Absolute Neuts (auto) 8.6 H (2.0-8.3) x10*3/uL Absolute Nucleated RBC 0.000 (0.0-0.012) X10*3/uL Nucleated RBC % (auto) 0.0 (0.0-0.2) /100WBC Sodium 136 (135-145) mmol/L Potassium 3.8 (3.3-5.1) mmol/L Chloride 105 (96-108) mmol/L Carbon Dioxide 20 L (22-29) mmol/L Anion Gap 15 (12-20) BUN 9 (9-16) mg/dL Creatinine 0.68 (0.5-1.4) mg/dL Estim Creat Clear Calc 121.6 Estimated GFR > 60 Random Glucose 97 (60-115) mg/dL Calcium 9.5 (8.4-10.2) mg/dL Total Bilirubin 0.6 (0.0-1.0) mg/dL Direct Bilirubin 0.2 (0.0-0.5) mg/dL AST 24 (5-31) U/L ALT 30 (0-31) U/L Alkaline Phosphatase 68 (39-117) U/L C-Reactive Protein 2.11 H (< or = 0.50) mg/dL Total Protein 7.9 (6.5-8.0) g/dL Albumin 4.7 (3.5-5.0) g/dL Urine Color Dark Yellow Urine Appearance Clear Urine pH 5.0 (5.0-9.0) Ur Specific [place] >= 1.030 H (1.005-1.025) Urine Protein Trace (Neg-Trace) mg/dL Urine Glucose (UA) Negative (Negative) mg/dL Urine Ketones 15 (Negative) mg/dL Urine Blood Moderate (2+) H (Negative) Urine Nitrite Negative (Negative) Ur Leukocyte Esterase Small (1+) H (Negative) Urine RBC 11-20 H (0-2) /HPF Urine WBC 6-10 H (0-5) /HPF Ur Squamous Epith Cells 3-5 (0-2) /HPF Urine Bacteria Trace (None Seen) Hyaline Casts 0-2 (0-2) /LPF Urine Test NEGATIVE (NEGATIVE) COVID-19 (RADHA) Negative (Negative) COVID-19 Clin Com See Note Influenza Type A (MIHAELA) Negative (Negative) Influenza Type B (MIHAELA) Negative (Negative) Influenza A & B Note See Note Medications Administered Discontinued Medications Generic Name Dose Route Start Last Admin Trade Name Freq PRN Reason Stop Dose Admin Droperidol 0.625 mg 07/22/25 23:11 07/22/25 23:47 Droperidol 5 Mg/2 Ml Vial IVPUSH 07/22/25 23:12 0.625 mg ONCE ONE Administration Sodium Chloride 1,000 mls @ 999 mls/hr 07/22/25 23:15 07/22/25 23:46 Ns IV 07/23/25 00:15 999 mls/hr .Q1H1M PINO Administration Ketorolac Tromethamine 15 mg 07/22/25 23:11 07/22/25 23:46 Ketorolac Tromethamine 15 Mg/Ml Vial IVPUSH 07/22/25 23:12 15 mg ONCE ONE Administration Discharge Plan Discharge Clinical Impression: Abdominal pain, vomiting, and diarrhea Patient Disposition: Home, Self-Care Additional Instructions: Please rest and take it easy tonight and tomorrow. Eat simple foods like rice and toast and clear liquids. If you are significantly worse however please return to the emergency department. Prescriptions: No Action metronidazole [Vandazole] 0.75 % (37.5mg/5 gram) gel 1 appful vaginal DAILY 5 Days Qty: 70 0RF loratadine [Claritin] 10 mg tablet 10 mg PO DAILY PRN Referrals: Case Michel PA-C [Primary Care Provider, Internal Medicine] Stand Alone Forms: Work/School Release Print Language: Panamanian
[2025-07-22 20:36] VITALS: BP 104/61; PULSE 116; RESP 18; TEMP 36.9; O2SAT 98
--- OUTSIDE RECORDS SUMMARY | 2025-07-22 20:41 | XMS_ITS | Clinical Summary ---
Author Organization [facility] ity Address [address] [place] [address] Care Team Providers Care Iron Erector Name Role Phone Unavailable Primary Care Provider [...]
[2025-07-22 20:46] LABS: MANUAL DIFF FLAG NO
[2025-07-22 20:48] LABS: Hematocrit 43.3 % (37.0-47.0); Hemoglobin 13.8 g/dl (12.0-16.0); Imm Gran Abs Auto 0.04 X10*3/uL (0.00-0.03); Imm Gran Pct Auto 0.4 % (0.0-0.4); Lymphocytes Absolute Auto 0.9 X10*3/uL (1.2-4.9); Mean Corpuscular HGB Conc 31.9 g/dl (31.0-35.0); Mean Corpuscular Hemoglobin 24.9 pg (27.0-33.0); Mean Corpuscular Volume 78.0 fL (80.0-98.0); NRBC Abs Auto 0.000 X10*3/uL (0.0-0.012); NRBC Pct Auto 0.0 /100WBC (0.0-0.2); Platelet Count 402 X10*3/uL (160-400); Red Blood Count 5.55 X10*6/uL (4.20-5.50); White Blood Count 10.3 X10*3/uL (4.8-10.8)
[2025-07-22 21:02] LABS: Alanine Aminotransferase 30 U/L (0-31); Albumin Level 4.7 g/dL (3.5-5.0); Alkaline Phosphatase 68 U/L (39-117); Anion Gap 15 (12-20); Aspartate Amino Transferase 24 U/L (5-31); Blood Urea Nitrogen 9 mg/dL (9-16); COVID-19 Test Negative (Negative); Calcium 9.5 mg/dL (8.4-10.2); Carbon Dioxide 20 mmol/L (22-29); Chloride 105 mmol/L (96-108); Creatinine Clr Calc Pharmacy 121.6; Estimated Glomerular Filt Rate > 60; IDNOW Serial# 55D5AD1C; Potassium 3.8 mmol/L (3.3-5.1); Sodium 136 mmol/L (135-145); Total Protein 7.9 g/dL (6.5-8.0)
[2025-07-22 21:03] LABS: IDNOW Serial# 58CA691E; Influenza B2 Negative (Negative)
[2025-07-22 21:05] LABS: Appearance Urine Clear; Glucose Urine UA Negative (Negative); PH 5.0 (5.0-9.0); Specific Gravity - Urine >= 1.030 (1.005-1.025); UMIC TRIGGER UACC YES
[2025-07-22 21:07] LABS: UACC Culture Trigger YES; UPreg QC Valid YES
[2025-07-22 23:47] VITALS: BP 126/78; PULSE 103; RESP 16; O2SAT 96
[2025-07-23 00:42] VITALS: BP 126/78; PULSE 103; RESP 16; TEMP 36.6; O2SAT 96
== END 2025-07-23 00:43 | disposition home or self-care (01) ==
PROVIDERS: Nurse Practitioner Family; Emergency Provider Emergency Medicine; PCP Physician Assistant
DX: R11.2 Nausea with vomiting, unspecified (principal); R19.7 Diarrhea, unspecified; R51.9 Headache, unspecified
CPT/HCPCS: 80048; 80076; 81001; 81025; 85025; 86140; 87086; 87502; 87635; 96361; 96374; 96375; 99284; J1790; J1885

== ENCOUNTER 2025-07-24 14:51 | Emergency (ER) | payer OTHER, SELFPAY ==
[2025-07-24 15:10] VITALS: BP 109/70; PULSE 113; RESP 18; TEMP 36.6; O2SAT 99; BMI 33.0
--- NOTE | 2025-07-24 15:28 | ED_ITS ---
HPI - General Adult General Chief complaint: Nausea/Vomiting/Diarrhea Stated complaint: Nausea Vomiting Diarrhea Time Seen by Provider: 07/24/25 18:24 History of Present Illness ED Provider: Karlie QUINTANILLA narrative: The patient is a 30-year-old female who returns to the emergency room after being seen here 2 days ago. She had presented 2 days ago on Wednesday with a 1 day history of nausea, vomiting, and diarrhea. She had unremarkable lab testing and was treated symptomatically. She improved with ketorolac and droperidol and was discharged. She says that although she felt better at the time that she left the emergency room she soon felt unwell again. She has continued to have nausea, vomiting, and diarrhea. She says that she has had more diarrhea than vomiting. She says she has been able to tolerate some liquids but not solids. She says that she only has a abdominal pain when she vomits. She is not here for worsening abdominal pain. She is here because she has not eaten in 2 days and feels weak. She also has a headache. Related Data Home Medications ?Medication ?Instructions ?Recorded ?Confirmed loratadine 10 mg tablet (Claritin) 10 mg PO DAILY PRN 06/13/25 07/03/25 Previous Rx's ?Medication ?Instructions ?Recorded metronidazole 0.75 % (37.5 mg/5 1 appful vaginal DAILY 5 days #70 07/06/25 gram) vaginal gel (Vandazole) grams loperamide 1 mg/7.5 mL oral liquid 2 mg (15 mL) PO Q2- 4H PRN loose 07/24/25 stool #120 mL ondansetron 4 mg disintegrating 4 mg PO Q6H PRN nausea and 07/24/25 tablet vomiting #10 tabs Allergies Allergy/AdvReac Type Severity Reaction Status Date / Time No Known Allergies (No Known Allergy Verified 07/24/25 15:12 Allergies*) Review of Systems 2 Review of Systems: Yes all other systems are reviewed and are negative [facility] Past Medical History Medical History (Updated 07/25/25 @ 00:00 by Carmenza Hammond) Asthma Tourettes disorder Family History Family History Mother Hypothyroid Social History Social History (Updated 07/03/25 @ 09:34 by Krys Burton MA) Housing: Apartment Alcohol intake: current Alcohol intake frequency: does not drink Patient Tobacco Use Status: Never used Tobacco Smoked in Last 30 Days: No e-Cigarette/Vaping Use: Never Used Use of substances other than those prescribed or required for medical reasons: No Advance Directives: No Advance Directives Information Provided: No Patient : No service: No Current occupational status: employed and unemployed 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 She looks mildly unwell but not acutely toxic or severely ill. HENMT Other: The face is symmetrical. ?Mucous membranes moist. Eyes Other: Pupils are round equal, conjunctivae are clear, extraocular movements intact Neck Neck: Yes normal visual inspection, Yes full ROM and Yes no lymphadenopathy Resp Effort & Inspection: normal respiratory effort Auscultation: clear to auscultation bilaterally Cardio Rate: regular rate Rhythm: regular rhythm Heart sounds: S1 normal heart sound present and S2 normal heart sound present GI Other: The abdomen is soft and nontender. Skin Other: The skin is dry and unremarkable General skin exam: no rashes or lesions noted Neuro Other: The patient is awake and alert with a normal mental status. She has occasional involuntary facial tics but otherwise her cranial nerves are intact. She moves her extremities normally and appropriately. Extrem Other: There is no calf swelling or tenderness. No asymmetry. No peripheral edema. Course Course Course Narrative: RME: 30-year-old female presents to ED for nausea vomiting abdominal pain and diarrhea. Patient was seen here 2 days ago for similar complaints. Repeat labs ordered Medications Administered Discontinued Medications Generic Name Dose Route Start Last Admin Trade Name Freq PRN Reason Stop Dose Admin Diphenhydramine HCl 25 mg 07/24/25 18:32 07/24/25 18:49 Diphenhydramine Hcl 50 Mg/Ml Vial IVPUSH 07/24/25 18:33 25 mg ONCE ONE Administration Sodium Chloride 1,000 mls @ 999 mls/hr 07/24/25 18:45 07/24/25 19:40 Ns IV 07/24/25 19:45 Infused .Q1H1M PINO Infusion Ketorolac Tromethamine 15 mg 07/24/25 18:31 07/24/25 18:48 Ketorolac Tromethamine 15 Mg/Ml Vial IVPUSH 07/24/25 18:32 15 mg ONCE ONE Administration Metoclopramide HCl 10 mg 07/24/25 18:31 07/24/25 18:49 Metoclopramide Hcl 10 Mg/2 Ml Vial IVPUSH 07/24/25 18:32 10 mg ONCE ONE Administration Medical Decision Making Medical Decision Making [facility] Narrative: The patient is a 30-year-old female who presents with a complaint of nausea, vomiting, and diarrhea. I saw the patient was similar symptoms 2 days ago. She had unremarkable lab work and she was treated symptomatically and discharged. She says that she has continued to have nausea, vomiting, and diarrhea since she was here 2 days ago. She says that she has had more diarrhea than vomiting. She says she only has a abdominal pain when she vomits. She does not seem to have significant abdominal pain at the time that I examined her and she had no abdominal tenderness. She was treated symptomatically with IV ketorolac, metoclopramide, and diphenhydramine as well as IV fluids. She seemed to feel better. I re-examined her. She continues to have no abdominal tenderness. The patient has white blood count today is 8.5. It was 10.32 days ago. She has no left shift. She has 71% neutrophils and 17% lymphocytes. The patient has increased ketones in her urine today compared to 2 days ago consistent with poor oral intake and nausea and vomiting. However I do not feel she has a appendicitis or any other acute surgical abdominal problem. I examined her abdomen several times while she was in the emergency room in her abdomen remains benign and nontender. She was not even really complaining of abdominal pain today. She was complaining more of a headache as well as vomiting and diarrhea. She felt considerably better after treatment and seemed to be tolerating oral intake. She did not want anymore IV fluids. The patient will be discharged with prescriptions for oral dissolving ondansetron and liquid loperamide (she says she can not swallow pills). Lab Data 07/24/25 15:41 07/24/25 15:41 Labs: Lab Results 07/24/25 07/24/25 Range/Units 15:41 20:13 WBC 8.5 (4.8-10.8) X10*3/uL RBC 5.66 H (4.20-5.50) X10*6/uL Hgb 14.1 (12.0-16.0) g/dl Hct 44.6 (37.0-47.0) % MCV 78.8 L (80.0-98.0) fL MCH 24.9 L (27.0-33.0) pg MCHC 31.6 (31.0-35.0) g/dl RDW 13.7 (11.0-16.0) % Plt Count 372 (160-400) X10*3/uL MPV 9.7 (9.4-12.3) fL Immature Gran % (Auto) 0.5 H (0.0-0.4) % Neut % (Auto) 71.4 (45-73) % Lymph % (Auto) 17.2 L (20-40) % Mitchell % (Auto) 10.0 (2-11) % Eos % (Auto) 0.4 (0-4) % Baso % (Auto) 0.5 (0-2) % Lymph # (Auto) 1.5 (1.2-4.9) X10*3/uL Mitchell # (Auto) 0.9 (0.1-1.2) X10*3/uL Eos # (Auto) 0.0 (0.0-0.4) X10*3/uL Baso # (Auto) 0.0 (0.0-0.2) X10*3/uL Abs Immat Gran (auto) 0.04 H (0.00-0.03) X10*3/uL Absolute Neuts (auto) 6.1 (2.0-8.3) x10*3/uL Absolute Nucleated RBC 0.000 (0.0-0.012) X10*3/uL Nucleated RBC % (auto) 0.0 (0.0-0.2) /100WBC Sodium 139 (135-145) mmol/L Potassium 3.8 (3.3-5.1) mmol/L Chloride 106 (96-108) mmol/L Carbon Dioxide 22 (22-29) mmol/L Anion Gap 15 (12-20) BUN 9 (9-16) mg/dL Creatinine 0.82 (0.5-1.4) mg/dL Estim Creat Clear Calc 106.3 Estimated GFR > 60 Random Glucose 86 (60-115) mg/dL Calcium 9.5 (8.4-10.2) mg/dL Total Bilirubin 0.5 (0.0-1.0) mg/dL AST 32 H (5-31) U/L ALT 30 (0-31) U/L Alkaline Phosphatase 69 (39-117) U/L C-Reactive Protein 4.47 H (< or = 0.50) mg/dL Total Protein 8.2 H (6.5-8.0) g/dL Albumin 4.8 (3.5-5.0) g/dL Beta HCG, Quant < 2 mIU/mL Urine Color Dark Yellow Urine Appearance Cloudy Urine pH 5.5 (5.0-9.0) Ur Specific [place] >= 1.030 H (1.005-1.025) Urine Protein 30 (1+) H (Neg-Trace) mg/dL Urine Glucose (UA) Negative (Negative) mg/dL Urine Ketones 80 (Negative) mg/dL Urine Blood Large (3+) H (Negative) Urine Nitrite Negative (Negative) Ur Leukocyte Esterase Trace H (Negative) Urine RBC 6-10 H (0-2) /HPF Urine WBC 6-10 (0-5) /HPF Ur Squamous Epith Cells 11-20 (0-2) /HPF Urine Bacteria 1+ (None Seen) Hyaline Casts 6-10 (0-2) /LPF COVID-19 (RADHA) Negative (Negative) COVID-19 Clin Com See Note Influenza Type A (MIHAELA) Negative (Negative) Influenza Type B (MIHAELA) Negative (Negative) Influenza A & B Note See Note S. pyogenes GrpA MIHAELA Negative (Negative) Discharge Plan Discharge Clinical Impression: Nausea vomiting and diarrhea Patient Disposition: Home, Self-Care Instructions: Acute Nausea and Vomiting (ED), Acute Nausea and Vomiting (DC) Additional Instructions: Please rest and take it easy for the next couple of days. I have sent a prescription for a medication called ondansetron (also known as Zofran) which you may use as needed for nausea. This pill will dissolve in your mouth. I have also sent a prescription for a medication called loperamide which can help reduce diarrhea. Please use this as prescribed. Please stay in touch with your regular doctor for additional advice as needed. Return to the emergency room if significantly worse. Prescriptions: New ondansetron 4 mg tablet,disintegrating 4 mg PO Q6H PRN (Reason: nausea and vomiting) Qty: 10 0RF loperamide 1 mg/7.5 mL liquid 2 mg PO Q2-4H PRN (Reason: loose stool) Qty: 120 0RF Rx Instructions: administer after each loose stool until symptoms controlled; do not exceed 16 mg per 24 hrs No Action metronidazole [Vandazole] 0.75 % (37.5mg/5 gram) gel 1 appful vaginal DAILY 5 Days Qty: 70 0RF loratadine [Claritin] 10 mg tablet 10 mg PO DAILY PRN Referrals: Case Michel PA-C [Primary Care Provider, Internal Medicine] Stand Alone Forms: Work/School Release Interventions: ED Discharge Assessment Last Done: 07/24/25 21:18 Discharge Date/Time: 07/24/25 21:24 Print Language: Filipino
[2025-07-24 15:47] LABS: Hematocrit 44.6 % (37.0-47.0); Hemoglobin 14.1 g/dl (12.0-16.0); Imm Gran Abs Auto 0.04 X10*3/uL (0.00-0.03); Imm Gran Pct Auto 0.5 % (0.0-0.4); Lymphocytes Absolute Auto 1.5 X10*3/uL (1.2-4.9); MANUAL DIFF FLAG NO; Mean Corpuscular HGB Conc 31.6 g/dl (31.0-35.0); Mean Corpuscular Hemoglobin 24.9 pg (27.0-33.0); Mean Corpuscular Volume 78.8 fL (80.0-98.0); NRBC Abs Auto 0.000 X10*3/uL (0.0-0.012); NRBC Pct Auto 0.0 /100WBC (0.0-0.2); Platelet Count 372 X10*3/uL (160-400); Red Blood Count 5.66 X10*6/uL (4.20-5.50); White Blood Count 8.5 X10*3/uL (4.8-10.8)
[2025-07-24 16:00] LABS: IDNOW Serial# 08D9AD1C; Strep A Nucleic Acid Negative (Negative)
[2025-07-24 16:06] LABS: IDNOW Serial# 58CA691E; Influenza B2 Negative (Negative)
[2025-07-24 16:08] LABS: COVID-19 Test Negative (Negative); IDNOW Serial# 55D5AD1C
[2025-07-24 16:12] LABS: Alanine Aminotransferase 30 U/L (0-31); Albumin Level 4.8 g/dL (3.5-5.0); Alkaline Phosphatase 69 U/L (39-117); Anion Gap 15 (12-20); Aspartate Amino Transferase 32 U/L (5-31); Blood Urea Nitrogen 9 mg/dL (9-16); Calcium 9.5 mg/dL (8.4-10.2); Carbon Dioxide 22 mmol/L (22-29); Chloride 106 mmol/L (96-108); Creatinine Clr Calc Pharmacy 106.3; Estimated Glomerular Filt Rate > 60; Potassium 3.8 mmol/L (3.3-5.1); Sodium 139 mmol/L (135-145); Total Protein 8.2 g/dL (6.5-8.0)
[2025-07-24 18:47] VITALS: BP 109/77; PULSE 92; RESP 16; TEMP 36.9; O2SAT 97
--- OUTSIDE RECORDS SUMMARY | 2025-07-24 20:21 | XMS_ITS | Clinical Summary ---
Author Organization [facility] ity Address [address] [place] [address] Care Team Providers Care Food Prep Worker Name Role Phone Unavailable Primary Care Provider [...]
--- OUTSIDE RECORDS SUMMARY | 2025-07-24 20:21 | XMS_ITS | Data Portability ---
Author Organization [facility] Maternal Medicine, JEROD_CODY OBANN (ProfDouglas) Address [address], [address] [place] [address] Assessment No assessment recorded. Plan of Treatment [...] Diagnosis SNOMED-CT Code Diagnosis ICD10 Code Diagnosis IMO Codes Diagnosis Note [id number] Kiko Benito MD [address] [address] 10/21/2017 10:49:44 10/21/2017 10:51:36 Health Concerns Section Related Observation LastModified by Organization Detai ls LastModified Time None Recorded Concern Status LastModified by Organization Details LastModified Time None Recorded Advance Directives Directive None Recorded Payers Insurance Date Sequence Insurance Name Policy Number Policy Wagner Covered Member ID Wagner Member ID Guarantor Name 12/17/2017 1 [place]: [facility] Corie Swain [id number] Corie Swain OBGymanuel Episode No OBEpisode recorded.
[2025-07-24 20:48] LABS: Appearance Urine Cloudy; Glucose Urine UA Negative (Negative); PH 5.5 (5.0-9.0); Specific Gravity - Urine >= 1.030 (1.005-1.025); UMIC TRIGGER UACC YES
[2025-07-24 21:04] LABS: UACC Culture Trigger YES
[2025-07-24 21:18] VITALS: BP 109/77; PULSE 92; RESP 16; TEMP 36.9; O2SAT 97
== END 2025-07-24 21:24 | disposition home or self-care (01) ==
PROVIDERS: Physician Assistant; Emergency Provider Emergency Medicine; PCP Physician Assistant
DX: R11.2 Nausea with vomiting, unspecified (principal); R19.7 Diarrhea, unspecified; R51.9 Headache, unspecified; Z79.899 Other long term (current) drug therapy; Z11.52 Encounter for screening for COVID-19
CPT/HCPCS: 80053; 81001; 84702; 85025; 86140; 87086; 87502; 87635; 87651; 96361; 96374; 96375; 99284; J1200; J1885; J2765

== ENCOUNTER 2025-08-05 20:42 | Emergency (ER) | payer OTHER, SELFPAY ==
[2025-08-05 20:49] VITALS: BP 110/77; PULSE 90; RESP 18; TEMP 36.4; O2SAT 98; BMI 33.3
--- NOTE | 2025-08-05 20:51 | ED.GENADULT ---
HPI - General Adult General Chief complaint: Allergic Reaction Stated complaint: body rash Time Seen by Provider: 08/05/25 20:59 Source: patient Mode of arrival: ambulatory Limitations: no limitations History of Present Illness ED Provider: Armando Crooks HPI narrative: 30 yold female with pmh of environmental allergies presents to the ED for generalized ithcy rash for couple of days. patient denies any fever, chills, nuasea, vomiting, shortness of breath, throat closing, lip swelling, tongue swelling, or change in voice. Related Data Home Medications ?Medication ?Instructions ?Recorded ?Confirmed loratadine 10 mg tablet (Claritin) 10 mg PO DAILY PRN 06/13/25 07/03/25 Previous Rx's ?Medication ?Instructions ?Recorded metronidazole 0.75 % (37.5 mg/5 1 appful vaginal DAILY 5 days #70 07/06/25 gram) vaginal gel (Vandazole) grams loperamide 1 mg/7.5 mL oral liquid 2 mg (15 mL) PO Q2-4H PRN loose 07/24/25 stool #120 mL ondansetron 4 mg disintegrating 4 mg PO Q6H PRN nausea and 07/24/25 tablet vomiting #10 tabs diphenhydramine HCl 25 mg capsule 25 mg PO TID PRN allergic reaction 08/05/25 (Benadryl) #21 caps famotidine 20 mg tablet (Pepcid) 20 mg PO BID 7 days #14 tabs 08/05/25 prednisone 20 mg tablet 40 mg (2 x 20 mg) PO DAILY 5 days 08/05/25 #10 tabs Allergies Allergy/AdvReac Type Severity Reaction Status Date / Time environmental allergies Allergy Hives Verified 08/05/25 20:52 Review of Systems Review of Systems: generalized itchy rash Yes all other systems are reviewed and are negative [facility] Past Medical History Medical History (Updated 08/06/25 @ 00:00 by Carmenza Hammond) Asthma Tourettes disorder Family History Family History Mother Hypothyroid Social History Social History (Updated 07/03/25 @ 09:34 by Krys Burton MA) Housing: Apartment Alcohol intake: current Alcohol intake frequency: does not drink Patient Tobacco Use Status: Never used Tobacco e-Cigarette/Vaping Use: Never Used Advance Directives: No Advance Directives Information Provided: Yes service: No Current occupational status: employed and unemployed 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 Cognitive needs: No Hearing needs: No Vision needs: No Physical Exam ED Vital Signs: Vital Signs - 24 hr 08/05/25 20:49 08/05/25 21:15 Temperature 97.5 F 97.5 F Pulse Rate 90 90 Respiratory Rate 18 18 Blood Pressure 110/77 110/77 Pulse Oximetry 98 98 Oxygen Delivery Method Room Air Room Air BMI result Body Mass Index 33.3 Const General: cooperative, healthy appearing, comfortable, no acute distress, well developed, alert, awake and Physically active HENVA Other: negative for facial swelling, lip swelling, tongue swelling, or uvula swelling Head: Yes normal to inspection, Yes No palpable skull fracture present, Yes normocephalic and Yes atraumatic General nose exam: Normal external nose present, Normal nares present and No nasal polyps present Face and sinus: Yes normal facial exam, Yes sinuses nontender and Yes face symmetric Throat: Yes posterior oropharynx normal, Yes tonsils normal and Yes uvula midline Eyes General: appearance normal, both eyes and all related structures Neck Neck: Yes normal visual inspection, Yes full ROM, Yes no lymphadenopathy, Yes no meningeal signs, Yes trachea midline, Yes supple and No anterior neck swelling Chest Chest palpation & inspection: normal inspection of the chest and normal palpation of entire chest wall Resp Effort & Inspection: normal respiratory effort and able to speak in complete sentences Auscultation: clear to auscultation bilaterally Cardio Jugular venous distension: no JVD Heart sounds: S1 normal heart sound present and S2 normal heart sound present GI Inspection: Yes normal to inspection Palpation (GI): Soft to palpation, not firm, nontender, no guarding and not rigid General: Yes no CVA tenderness Back/Spine/Pelvis Back: no CVA tenderness and No back tenderness Skin Other: uticaria rash on back, chest, extremites upper and lower General skin exam: elasticity normal and turgor normal Rashes: rashes noted (uticaria rash/hives) multiple locations Neuro General: no meningeal signs Extrem General: Yes normal to inspection, Yes full ROM and Yes capillary refill normal Psych Appearance: grossly normal, well kempt and not disheveled Medications Administered Discontinued Medications Generic Name Dose Route Start Last Admin Trade Name Freq PRN Reason Stop Dose Admin Diphenhydramine HCl 50 mg 08/05/25 20:53 08/05/25 21:37 Diphenhydramine Hcl 25 Mg Capsule PO 08/05/25 20:54 Not Given ONCE ONE Famotidine 20 mg 08/05/25 20:53 08/05/25 21:06 Famotidine 20 Mg Tablet PO 08/05/25 20:54 20 mg ONCE ONE Administration Prednisone 40 mg 08/05/25 20:53 08/05/25 21:06 Prednisone 20 Mg Tablet PO 08/05/25 20:54 40 mg ONCE ONE Administration Medical Decision Making Medical Decision Making MDM Narrative: 30-year-old female presents to ED for itchy rash generalized itchy rash in the body. Patient states for couple of days. Patient denies any new new cosmetics, detergents, foods. Patient denies any swelling of lips, shortness of breath, or throat closing. Patient denies any new antibiotics. Patient given Benadryl prednisone a steroid. Patient is informed to follow up with primary care provider and referral to appliance repair technician. Patient explained worrisome signs and informed to return to the ED immeidatley. not suspectin anyphylaxis, steveon palmira syndrome, celluliitis, petchiae, purpura, or any other life threatening etiology. Patient presently well apperaing. Differential Diagnosis Differential Diagnoses: The differential diagnosis associated with the presentation includes (Dermatitis, allergic reaction) Admission/Observation Consideration of admission/observation: Escalation of care including admission/observation considered Independent Historian Clinical information obtained from an independent historian. History obtained from or confirmed by: Other (Patient) Prescription Management I considered prescription management with: Other (Benadryl prednisone Pepcid) Discharge Plan Discharge Clinical Impression: Allergic reaction Patient Disposition: Home, Self-Care Instructions: General Allergic Reaction (ED) Additional Instructions: Recommend follow-up with primary care provider and referral to appliance repair technician. Return to the ED immediately for any chest pain, shortness of breath worsening rash, fever, chills, peeling skin, nausea, vomiting, swelling of lips, swelling of tongue, sensation of throat closing, any other concerning symptoms. Prescriptions: New diphenhydramine HCl [Benadryl] 25 mg capsule 25 mg PO TID PRN (Reason: allergic reaction) Qty: 21 0RF prednisone 20 mg tablet 40 mg PO DAILY 5 Days Qty: 10 0RF famotidine [Pepcid] 20 mg tablet 20 mg PO BID 7 Days Qty: 14 0RF No Action metronidazole [Vandazole] 0.75 % (37.5mg/5 gram) gel 1 appful vaginal DAILY 5 Days Qty: 70 0RF ondansetron 4 mg tablet,disintegrating 4 mg PO Q6H PRN (Reason: nausea and vomiting) Qty: 10 0RF loperamide 1 mg/7.5 mL liquid 2 mg PO Q2-4H PRN (Reason: loose stool) Qty: 120 0RF Rx Instructions: administer after each loose stool until symptoms controlled; do not exceed 16 mg per 24 hrs loratadine [Claritin] 10 mg tablet 10 mg PO DAILY PRN Stand Alone Forms: Work/School Release Interventions: ED Discharge Assessment Last Done: 08/05/25 21:15 Discharge Date/Time: 08/05/25 21:20 Print Language: Italian
--- OUTSIDE RECORDS SUMMARY | 2025-08-05 21:02 | XMS_ITS | Data Portability ---
Author Organization [facility] Maternal Medicine, JEROD_CODY OBANN (ProfDouglas) Address [address], [address] [place] [address] Assessment No assessment recorded. Plan of Treatment [...] ICD10 Code Diagnosis IMO Codes Diagnosis Note [id number] Kiko Benito MD [address] [address] 10/21/2017 10:49:44 10/21/2017 10:51:36 Health Concerns Section Related Observation LastModified by Organization Detai ls LastModified Time None Recorded Concern Status LastModified by Organization Details LastModified Time None Recorded Advance Directives Directive None Recorded Payers Insurance Date Sequence Insurance Name Policy Number Policy Wagner Covered Member ID Wagner Member ID Guarantor Name 12/17/2017 1 [place] [facility] Corie Swain [id number] Corie Swain OBGymanuel Episode No OBEpisode recorded.
--- OUTSIDE RECORDS SUMMARY | 2025-08-05 21:02 | XMS_ITS | Clinical Summary ---
Author Organization [facility] ity Address [address] [place] [address] Care Team Providers Care Grapple Operator Name Role Phone Unavailable Primary Care [...]
[2025-08-05 21:15] VITALS: BP 110/77; PULSE 90; RESP 18; TEMP 36.4; O2SAT 98
--- NOTE | 2025-08-05 21:37 | PC.NURSE ---
Pt stating she is unabl to swallow pill attempted and kept spitting out. Pt will get OTC liquid benadryl and take that.
== END 2025-08-05 21:20 | disposition home or self-care (01) ==
PROVIDERS: Emergency Provider Emergency Medicine; PCP Physician Assistant
DX: T78.40XA Allergy, unspecified, initial encounter (principal); X58.XXXA Exposure to other specified factors, initial encounter
CPT/HCPCS: 99282; 99283

== ENCOUNTER 2025-08-10 15:46 | Outpatient (AMB) | payer OTHER, SELFPAY ==
--- NOTE | 2025-08-10 15:48 | A.OFFPC_ITS ---
Vital Signs 08/10/25 15:51 Height 5 ft 4 in Weight 199 lb 2 oz BMI 34.2 BP 120/66 Blood Pressure Location Lt brachial Position Sitting Pulse 86 Pulse Source Pulse Oximeter Temp 97.3 F Temp Source Temporal Artery Scan Pulse Oximetry (%) 98 Oxygen Delivery Method Room Air Intake [place] [facility] [place] Intake Note: Patient is here to follow-up after a visit the emergency department at [facility] [place]. Manager City Required: No Vocational Rehabilitation Counselor: Not Required per policy Accompanied by: Self / Same As Patient Allergies environmental allergies Allergy (Verified 08/10/25 15:50) Hives Medication List - Last Reconciled 08/10/25 by Haley Longoria NP diphenhydramine HCl (Benadryl) 25 mg PO BEDTIME PRN famotidine (Pepcid) 20 mg PO BID 10 days hydrocortisone 2.5% 1 appl topical BID prednisone 20 mg PO DAILY 5 days Tobacco use date assessed: 08/10/25 Dental Screening Dental Screen Date: 01/09/25 HPI HPI Comments History of Present Illness Details 30-year-old female presents for EDF foll ow-up after [facility] [place] on 08/05/25 for generalized itchy body rash. She was diagnosed with allergic urticaria. She denies fever, chills, nausea, vomiting, shortness of breath, throat tightness, lip/tongue swelling, or voice changes. She denies any new medications (including antibiotics), cosmetics, detergents, or foods. She was discharged with prednisone 20 mg x 5 days, diphenhydramine 25 mg at bedtime, and famotidine. Patient reports she has only been taking diphenhydramine by crushing it due to difficulty swallowing tablets. She was unable to tow picker famotidine because pharmacy was out of stock. She is not taking prednisone because she does not like the taste and has difficulty swallowing tablets. She requests a referral to an production line assembler for allergy testing. [facility] Medical History (Updated 08/10/25 @ 16:10 by Haley Longoria NP) Allergic urticaria Asthma Tourettes disorder Surgical History (Updated 08/10/25 @ 15:55 by JESSICA Stevens) No pertinent past surgical history Family History (Updated 08/10/25 @ 15:49 by JESSICA Stevens) Mother Hypothyroid Social History Housing: Apartment Alcohol intake: current Alcohol intake frequency: does not drink Patient Tobacco Use Status: Never used Tobacco e-Cigarette/Vaping Use: Never Used Second Hand Smoke Exposure: No service: No Current occupational status: employed and unemployed 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 1. Little interest or pleasure in doing things: not at all 2. Feeling down, depressed, or hopeless: not at all 3. Trouble falling or staying asleep, or sleeping too much: not at all 4. Feeling tired or having little energy: not at all 5. Poor appetite or overeating: not at all 6. Feeling bad about yourself - or that you are a failure or have let yourself or your family down: not at all 7. Trouble concentrating on things, such as reading the newspaper or watching television: not at all 8. Moving or speaking so slowly that other people could have noticed. Or the opposite - being so fidgety or restless that you have been moving around a lot more than usual: not at all 9. Thoughts that you would be better off or of hurting yourself in some way: not at all Total score: 0 Depression Screening Interpretation: Negative Depression Screening Done: Yes Source: Developed by Drs. Sunil Bobby, Alba Mcclure, Oli Lassiter and colleagues, with an educational tiffany from [employer]. Thrive Questionnaire Date Thrive assessed: 01/03/25 I am a: Patient What is your living situation today?: I have a place to live, but I am worried about losing it in the future Within the past 12 months, did the food you bought not last and you didn't have the money to get more?: I choose not to answer this question Within the past 12 months, did you worry whether your food would run out before you got money to buy more?: I choose not to answer this question Do you have trouble paying for medicines?: No Do you have trouble getting transportation to medical appointments?: No Do you have trouble paying your heating and electricity bill?: Yes Do you have trouble taking care of your child, family member or friend?: No Do you have trouble with day-to-day activities such as bathing, preparing meals, shopping, managing finances, etc.?: No Are you currently unemployed and looking for a job?: Yes Are you interested in more education?: No Currently or been in a relationship where the following occur: No concerns reported THRIVE Score: 2 VERO-7 AMB Questionnaire VERO-7 Date VERO - 7 assessed: 01/09/25 Source: Developed by Drs. Sunil Bobby, Alba Mcclure, Oli Lassiter and colleagues, with an educational tiffany from [employer]. Review of Systems Const All systems reviewed & are unremarkable except as noted in HPI and below Physical exam (Primary Care) Vital Signs: Last Vital Signs Temp 97.3 F 08/10/25 15:51 Pulse 86 08/10/25 15:51 BP 120/66 08/10/25 15:51 Pulse Ox 98 08/10/25 15:51 Oxygen Delivery Method Room Air 08/10/25 15:51 BMI result Body Mass Index 34.2 Tobacco/Smoking Status: Tobacco use Status Tobacco use date assessed 08/10/25 08/10/25 15:57 Patient Tobacco Use Status Never used Tobacco 08/10/25 15:57 e-Cigarette/Vaping Use Never Used 08/10/25 15:57 PHQ-9: PHQ-9 Score PHQ-9: Total score 0 08/10/25 15:57 Depression Screening Interpretation: Negative Thrive Assessment: Date of Thrive Assessment Date Thrive assessed 01/03/25 08/10/25 15:57 Currently or been in a relationship where the following occur: No concerns reported Const Orientation/consciousness: patient oriented x3 Resp Effort & Inspection: normal respiratory effort Cardio Heart sounds: S1 normal heart sound present and S2 normal heart sound present Skin Other: Uticaria rash/hives on back, chest, extremities upper and lower Neuro General: patient oriented x3, gait normal and moves all extremities Psych Speech and movement: Normal speech and movement present Coding Level of Care Code Est Pt Level 4 (84593) Diagnoses Allergic urticaria L50.0 Time Spent (min) 20 Assessment & Plan Assessment & Plan (1) Allergic urticaria: Code(s): L50.0 - Allergic urticaria Category: Medical Plan: Allergic urticaria ? Poor adherence to prescribed regimen due to pill-swallowing difficulty and intolerance to taste. Re-sent famotidine, she can try OTC liquid formulation depending on pharmacy availability. Continue diphenhydramine at bedtime. Ordered Hydrocortisone Topical cream. Place referral to Allergy/Immunology for evaluation and possible testing. Reviewed red flag symptoms requiring ER return (shortness of breath, throat closing, facial/tongue swelling, voice change). Cool compresses, avoid hot showers, avoid known irritants even if none identified. Orders: Referrals Allergy & Immunology Referral L50.0 - Allergic urticaria Medications: New diphenhydramine HCl (Benadryl) 25 mg PO BEDTIME PRN 30 caps 0RF itching L50.0 - Allergic urticaria hydrocortisone 2.5% 1 appl topical BID 30 grams 2RF L50.0 - Allergic urticaria prednisone 20 mg PO DAILY 5 tabs 0RF 5 days L50.0 - Allergic urticaria Changed From famotidine (Pepcid) 20 mg PO BID 7 days 14 tabs 0RF L50.0 - Allergic urticaria To famotidine (Pepcid) 20 mg PO BID 20 tabs 0RF 10 days L50.0 - Allergic urticaria Discontinued 2 ondansetron Discontinued Reason: Patient Completed Course 4 mg PO Q6H PRN 10 tabs 0RF nausea and vomiting loperamide administer after each loose stool until symptoms controlled; do not exceed 16 mg per 24 hrs Discontinued Reason: Patient Completed Course 2 mg (15 mL) PO Q2-4H PRN 120 mL 0RF loose stool diphenhydramine HCl (Benadryl) Discontinued Reason: Patient no longer taking 25 mg PO TID PRN 21 caps 0RF allergic reaction metronidazole 0.75%(37.5mg/5gram) (Vandazole) Discontinued Reason: Patient Completed Course 1 appful vaginal DAILY 5 days 70 grams 0RF
[2025-08-10 15:51] VITALS: BP 120/66; PULSE 86; TEMP 36.3; O2SAT 98; BMI 34.2
--- OUTSIDE RECORDS SUMMARY | 2025-08-11 00:47 | XMS_ITS | Clinical Summary ---
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
--- OUTSIDE RECORDS SUMMARY | 2025-08-11 00:47 | XMS_ITS | Data Portability ---
Author Organization [facility], JEROD_CODY OBANN (ProfDouglas) Address [address], [address] [place] [address] Assessment No assessment recorded. Plan of Treatment [...] ICD10 Code Diagnosis IMO Codes Diagnosis Note [id number] Kiko Benito MD [address] [id number] 10/21/2017 10:49:44 10/21/2017 10:51:36 Health Concerns Section Related Observation LastModified by Organization Detai ls LastModified Time None Recorded Concern Status LastModified by Organization Details LastModified Time None Recorded Advance Directives Directive None Recorded Payers Insurance Date Sequence Insurance Name Policy Number Policy Wagner Covered Member ID Wagner Member ID Guarantor Name 12/17/2017 1 [place] [facility] Corie Swain [id number] Corie Swain OBGymanuel Episode No OBEpisode recorded.
== END 2025-08-10 16:09 | disposition home or self-care (01) ==
LOC: HO.HMCH 15:47
PROVIDERS: PCP Physician Assistant; Visit Provider Nurse Practitioner Family
DX: L50.0 Allergic urticaria (principal)

== ENCOUNTER → 2025-08-10 15:46 | Outpatient (BNVA) | payer OTHER, SELFPAY | PROVIDERS: PCP Physician Assistant; Visit Provider Nurse Practitioner Family | DX: L50.0 Allergic urticaria (principal) | CPT/HCPCS: 99212 ==